=== PATIENT | male | born 1930 | race Caucasian/White ===

== ENCOUNTER 2016-11-20 14:16 | Inpatient (IN) | payer MEDICARE, BC ==
[2016-11-20] MEDS ORDERED: cefTRIAXone(*) 1 GM in NS 0.9% 50 ML* 50 ML IVPB ONE (15:08)
[2016-11-20] MEDS ORDERED: Acetaminophen TAB* 325 MG PO ONE (15:08)
[2016-11-20] MEDS ORDERED: Albuterol/Ipratropium NEB.SOL* Albuterol 2.5 MG/Ipratropium 0.5 MG 3 ML INH ONE (15:11)
[2016-11-20] MEDS ORDERED: Azithromycin IV(*) 500 MG in NS 0.9% 250 ML* 250 ML IVPB ONE (15:11)
[2016-11-20 15:28] LABS: Hematocrit 36 % (42-52); Hemoglobin 11.8 g/dl (14.0-18.0); Mean Corpuscular HGB Conc 33 g/dl (31-36); Mean Corpuscular Hemoglobin 32 pg (27-31); Mean Corpuscular Volume 95 fL (80-94); Mean Platelet Volume 7 um3 (7.4-10.4); Red Blood Count 3.74 10^6/ul (4.0-5.4); Red Cell Distribution Width 15 % (10.5-15); White Blood Count 22.7 10^3/ul (3.5-10.8)
[2016-11-20 15:29] LABS: Add Diff/Slide Review? Slide Review Added; Comments Flag Yes
--- NOTE | 2016-11-20 15:47 | RAD ---
HISTORY: Fever, cough, shortness of breath COMPARISONS: October 17, 2016 VIEWS:1: Single frontal portable view of the chest at 3:30 PM FINDINGS: LINES AND TUBES: None. CARDIOMEDIASTINAL SILHOUETTE: The cardiomediastinal silhouette is normal for portable technique. PLEURA: There is a small left pleural effusion LUNG PARENCHYMA: There is confluent alveolar opacification of the lung bases bilaterally. There is improved aeration of the right with progression on the left. ABDOMEN: The upper abdomen is clear. There is no subphrenic gas. BONES AND SOFT TISSUES: No bone or soft tissue abnormalities are noted. IMPRESSION: BIBASILAR AIRSPACE DISEASE, GREATER ON THE LEFT ON THE RIGHT, WITH PROGRESSION ON THE LEFT COMPARED TO OCTOBER 17, 2016. SMALL LEFT PLEURAL EFFUSION
[2016-11-20 15:50] LABS: Troponin I 0.28 ng/mL (<0.04)
[2016-11-20 15:54] LABS: Albumin 2.9 g/dL (3.2-5.2); BUN/Creatinine Ratio 21.1 (8-20); Calcium 9.1 mg/dL (8.6-10.3); EGFR African American 56.5 (>60); EGFR Non-African American 43.9 (>60); Globulin 3.8 g/dL (2-4); Potassium 4.1 mmol/L (3.5-5.0); Total Bilirubin 0.7 mg/dL (0.2-1.0); Total Protein 6.7 g/dL (6.4-8.9)
[2016-11-20] MEDS ORDERED: Digoxin IV* 0.5 MG/2 ML AMP (0.25 MG/ML) IV SLOW PU ONE (15:55)
[2016-11-20] MEDS: NS 0.9% 1000 ML* 2,000 ML IV ONE ×2 (15:58→17:03)
[2016-11-20] MEDS ORDERED: Acetaminophen TAB* 325 MG PO PRN (16:25)
[2016-11-20] MEDS ORDERED: Albuterol 2.5 MG/3 ML NEB.SOL* (0.083%) INH PRN (16:25)
[2016-11-20] MEDS ORDERED: NS 0.9% 1000 ML* 1,000 ML IV ONE (16:25)
[2016-11-20] MEDS ORDERED: Budesonide NEB* 0.5 MG/2 ML NEB.SOLN INH PRN (16:28)
[2016-11-20] MEDS ORDERED: NS 0.9% 1000 ML* 1,000 ML IV SCH (16:30)
--- NOTE | 2016-11-20 17:08 | ED ---
Kurtis Avalos Billy, scribed for Rakesh Ulloa MD on 11/20/16 at 1502 . Shortness of Breath - HPI Summary HPI Summary: Patient is an 86 year-old male coming to [facility] for evaluation of several days of cough and increased SOB. Patient has a history of severe dementia, but his family is here to provide a history. They state that he has had fevers, chills, rhinorrhea as well as a decreased appetite recently. 78% O2 saturation at home; patient uses home O2 regularly due to history of COPD/emphysema. Some family members have been sick as well. He has received the last year's flu vaccination. - History of Current Complaint Chief Complaint: EDShortnessOfBreath Time Seen by Provider: 11/20/16 14:50 Hx Obtained From: Family/Identification Officer Hx From Patient Unobtainable Due To: Dementia Onset/Duration: Gradual Onset, Lasting Days Timing: Constant Current Severity: Moderate Dyspnea At: Rest Alleviating Factors: Oxygen Associated Signs & Symptoms: Cough (Nonproductive), Fever, Chills, Calf Pain/ Swelling - Allergy/Home Medications Allergies/Adverse Reactions: Allergies Allergy/AdvReac Type Severity Reaction Status Date / Time No Known Allergies Allergy Verified 11/16/15 09:53 PMH/Surg Hx/FS Hx/Imm Hx Endocrine/Hematology History: Denies: Hx Diabetes Cardiovascular History: Reports: Hx Hypercholesterolemia - HLD, Other Cardiovascular Problems/Disorders - NSTEMI , AFIB, Denies: Hx Congestive Heart Failure, Hx Hypertension, Hx Pacemaker/ICD Respiratory History: Reports: Hx Chronic Bronchitis, Hx Chronic Obstructive Pulmonary Disease (COPD), Hx Pneumonia, Other Respiratory Problems/Disorders - HYPOXIA , OCCASIONAL smoker, emphysema GI History: Reports: Hx Gastroesophageal Reflux Disease, Hx Ulcer - HX OF, Other GI Disorders - RECTAL BLEEDING History: Reports: Hx Acute Renal Failure Denies: Hx Dialysis, Hx Renal Disease Musculoskeletal History: Reports: Hx Back Problems - back fracture Denies: Hx Arthritis, Hx Osteoporosis Sensory History: Reports: Hx Cataracts, Hx Contacts or Glasses - for reading, Hx Hearing Problem Denies: Hx Hearing Aid Opthamlomology History: Reports: Hx Cataracts, Hx Contacts or Glasses - for reading Neurological History: Reports: Hx Dementia, Other Neuro Impairments/Disorders - DEMENTIA Psychiatric History: Reports: Hx Anxiety, Hx Depression, Other Psychiatric Issues/Disorders - GETS CONFUSED AT NIGHT PER FAMILY ON LAST ADMISSION Denies: Hx Panic Disorder - Surgical History Surgery Procedure, Year, and Place: TONSILLECTOMY CHILD. BILAT CATARACTS [place] Hx Anesthesia Reactions: No - Immunization History Date of Tetanus Vaccine: unk Date of Influenza Vaccine: 2013 Infectious Disease History: No Infectious Disease History: Denies: Traveled Outside the [place] in Last 30 Days - Family History Known Family History: Positive: Respiratory Disease Family History: Father - Lung CA - Social History Alcohol Use: Rare Hx Substance Use: No Substance Use Type: Reports: None Hx Tobacco Use: Yes Smoking Status (MU): Heavy Every Day Tobacco Smoker Type: Cigarettes Amount Used/How Often: 10/DAY Length of Time of Smoking/Using Tobacco: 65 YRS Have You Smoked in the Last Year: Yes Review of Systems Positive: Fever, Chills Positive: Nasal Discharge Positive: Shortness Of Breath, Cough Positive: Other - decreased appetite Positive: Edema All Other Systems Reviewed And Are Negative: Yes Physical Exam - Summary Physical Exam Summary: The patient is well-nourished in no acute distress and in no acute pain. The skin is warm and dry and skin color reflects adequate perfusion. Decreased turgor. HEENT: The head is normocephalic and atraumatic. The pupils are equal and reactive. The conjunctivae are clear and without drainage. Nares are patent and without drainage. Mouth reveals dry mucous membranes and the throat is without erythema and exudate. The external ears are intact. The ear canals are patent and without drainage. The tympanic membranes are intact. Neck is supple with full range of motion and non-tender. There are no carotid bruits. There is positive neck vein distension. Respiratory: Chest is non-tender. Rhonchi and wheezing in the bilateral lung bases. Rales in the left upper lobe. Cardiovascular: Heart rate is tachycardic but regular rhythm. There is no murmur or rub auscultated. Abdomen: The abdomen is soft and non-tender. There are normal bowel sounds heard in all four quadrants and there is no organomegaly palpated. Musculoskeletal: There is no back pain noted. Extremities are non-tender with full range of motion. There is 2 second capillary refill. Pitting edema in the ankles and shins. Neurological: Patient is alert but not oriented. The patient has symmetrical motor strength in all four extremities. Cranial nerves are grossly intact. Deep tendon reflexes are symmetrical and equal in all four extremities. Psychiatric: The patient has an appropriate affect and does not exhibit any anxiety or depression. Triage Information Reviewed: Yes Vital Signs On Initial Exam: Initial Vitals Temp Pulse Resp BP Pulse Ox 99.8 F 65 16 132/95 80 11/20/16 14:21 11/20/16 14:21 11/20/16 14:21 11/20/16 14:21 11/20/16 14:21 Vital Signs Reviewed: Yes Completion Of Physical Exam Limited Due To: Dementia Diagnostics - Vital Signs Vital Signs Temp Pulse Resp BP Pulse Ox 11/20/16 14:21 99.8 F 65 16 132/95 80 - Laboratory Lab Results: Lab Results 11/20/16 11/20/16 11/20/16 Range/Units 15:20 15:20 15:20 WBC 22.7 H (3.5-10.8) 10^3/ul RBC 3.74 L (4.0-5.4) 10^6/ul Hgb 11.8 L (14.0-18.0) g/dl Hct 36 L (42-52) % MCV 95 H (80-94) fL MCH 32 H (27-31) pg MCHC 33 (31-36) g/dl RDW 15 (10.5-15) % Plt Count 309 (150-450) 10^3/ul MPV 7 L (7.4-10.4) um3 Neut % (Auto) 90.3 H (38-83) % Lymph % (Auto) 3.0 L (25-47) % [place] % (Auto) 6.4 (1-9) % Eos % (Auto) 0.1 (0-6) % Baso % (Auto) 0.2 (0-2) % Absolute Neuts (auto) 20.6 H (1.5-7.7) 10^3/ul Absolute Lymphs (auto) 0.7 L (1.0-4.8) 10^3/ul Absolute Monos (auto) 1.4 H (0-0.8) 10^3/ul Absolute Eos (auto) 0 (0-0.6) 10^3/ul Absolute Basos (auto) 0 (0-0.2) 10^3/ul Absolute Nucleated RBC 0 10^3/ul Nucleated RBC % 0 INR (Anticoag Therapy) 1.15 H (0.89-1.11) APTT 30.1 (26.0-36.3) seconds Sodium 138 (133-145) mmol/L Potassium 4.1 (3.5-5.0) mmol/L Chloride 100 L (101-111) mmol/L Carbon Dioxide 30 (22-32) mmol/L Anion Gap 8 (2-11) mmol/L BUN 32 H (6-24) mg/dL Creatinine 1.52 H (0.67-1.17) mg/dL Est GFR ( Amer) 56.5 (>60) Est GFR (Non-Af Amer) 43.9 (>60) BUN/Creatinine Ratio 21.1 H (8-20) Glucose 108 H (70-100) mg/dL Lactic Acid (0.5-2.0) mmol/L Calcium 9.1 (8.6-10.3) mg/dL Total Bilirubin 0.70 (0.2-1.0) mg/dL AST 15 (13-39) U/L ALT 9 (7-52) U/L Alkaline Phosphatase 68 (34-104) U/L Troponin I 0.28 H* (<0.04) ng/mL B-Natriuretic Peptide ( - 100) pg/mL Total Protein 6.7 (6.4-8.9) g/dL Albumin 2.9 L (3.2-5.2) g/dL Globulin 3.8 (2-4) g/dL Albumin/Globulin Ratio 0.8 L (1-3) 11/20/16 11/20/16 Range/Units 15:20 15:20 WBC (3.5-10.8) 10^3/ul RBC (4.0-5.4) 10^6/ul Hgb (14.0-18.0) g/dl Hct (42-52) % MCV (80-94) fL MCH (27-31) pg MCHC (31-36) g/dl RDW (10.5-15) % Plt Count (150-450) 10^3/ul MPV (7.4-10.4) um3 Neut % (Auto) (38-83) % Lymph % (Auto) (25-47) % [place] % (Auto) (1-9) % Eos % (Auto) (0-6) % Baso % (Auto) (0-2) % Absolute Neuts (auto) (1.5-7.7) 10^3/ul Absolute Lymphs (auto) (1.0-4.8) 10^3/ul Absolute Monos (auto) (0-0.8) 10^3/ul Absolute Eos (auto) (0-0.6) 10^3/ul Absolute Basos (auto) (0-0.2) 10^3/ul Absolute Nucleated RBC 10^3/ul Nucleated RBC % INR (Anticoag Therapy) (0.89-1.11) APTT (26.0-36.3) seconds Sodium (133-145) mmol/L Potassium (3.5-5.0) mmol/L Chloride (101-111) mmol/L Carbon Dioxide (22-32) mmol/L Anion Gap (2-11) mmol/L BUN (6-24) mg/dL Creatinine (0.67-1.17) mg/dL Est GFR ( Amer) (>60) Est GFR (Non-Af Amer) (>60) BUN/Creatinine Ratio (8-20) Glucose (70-100) mg/dL Lactic Acid 1.7 (0.5-2.0) mmol/L Calcium (8.6-10.3) mg/dL Total Bilirubin (0.2-1.0) mg/dL AST (13-39) U/L ALT (7-52) U/L Alkaline Phosphatase (34-104) U/L Troponin I (<0.04) ng/mL B-Natriuretic Peptide 465 H ( - 100) pg/mL Total Protein (6.4-8.9) g/dL Albumin (3.2-5.2) g/dL Globulin (2-4) g/dL Albumin/Globulin Ratio (1-3) Result Diagrams: 11/20/16 15:20 11/20/16 15:20 Lab Statement: Any lab studies that have been ordered have been reviewed, and results considered in the medical decision making process. - Radiology CXR Radiology Interpretation Completed By: Radiologist - BIBASILAR AIRSPACE DISEASE , GREATER ON THE LEFT ON THE RIGHT, WITH PROGRESSION ON THE LEFT COMPARED TO OCTOBER 17, 2016. SMALL LEFT PLEURAL EFFUSION - EKG 1451 EKG Interpretation: afib 145 bpm with RVR Re-Evaluation - Re-Evaluation First Eval Re-Evaluation Time: 15:57 Change: Unchanged Comment: He remains hypotensive. Course/Dx - Course Assessment/Plan: 86 y/o male to the ED for evaluation of SOB. CXR shows bibasilar airspace disease, greater on the left on the right, with progression on the left compared to 10/17/2016; small left pleural effusion. EKG shows afib 145 bpm with RVR. In the ED course, patient was given Tylenol, Duoneb, Digoxin, Rocephin, Azithromycin, and IV fluids. Case was discussed with Dr. Pearson, who accepted the patient for admission. - Diagnoses Provider Diagnoses: Pneumonia, sepsis, Atrial fibrillation, Elevated troponin - Physician Notifications Discussed Care of Patient With: Aung Hartley NP (hospitalist) @ 1532: discussed patient presentation. Dr. Pearson (hospitalist) @ 1602: accepts admission. - Critical Care Time Critical Care Time: 30-74 min - 30 minutes of critical care time Discharge - Discharge Plan Condition: Stable Disposition: ADMITTED TO [facility] Referrals: Micheal Rutledge MD [Primary Care Provider] - The documentation as recorded by the Kurtis salguero Billy accurately reflects the service I personally performed and the decisions made by , Rakesh Ulloa MD.
[2016-11-20] MEDS: Albuterol/Ipratropium NEB.SOL* Albuterol 2.5 MG/Ipratropium 0.5 MG 3 ML INH SCH ×2 (17:49→20:51)
[2016-11-20] MEDS: methylPREDNISolone 125 MG* 2 ML VIAL IV SCH (18:08)
[2016-11-20] MEDS: Mometasone/Formoter 200/5 MDI INH SCH (20:51)
--- NOTE | 2016-11-20 21:36 | HP ---
HISTORY AND PHYSICAL: DATE OF ADMISSION: 11/20/16 PRIMARY CARE PROVIDER: Dr. Rutledge. ATTENDING PHYSICIAN WHILE IN THE HOSPITAL: Dr. Pat Pearson* (report dictated by Aung Hartley, TAMEKA). CHIEF COMPLAINT: 1. Shortness of breath. 2. Hypoxia. HISTORY OF PRESENT ILLNESS: Mr. Ruelas is an 86-year-old male patient with multiple medical problems particularly respiratory who really is unable to give much history because he has underlying severe dementia, but he comes in today basically the stating and the family saying that over the last couple days , they have noted he had become progressively more confused which they usually note when he gets an infection. He has also noted that he has been having cough productive of sputum at times. In addition to this, he has been hypoxic. They needed to increase his O2 and there have been no reports of fever, nausea , vomiting, or diarrhea. He just has not been acting himself. They were concerned particularly when they noted that he was hypoxic, felt that maybe he had another pneumonia or COPD exacerbation which he has had multiple in the past. So, he came in to the hospital to be evaluated. PAST MEDICAL HISTORY: 1. History of COPD. 2. Chronic respiratory failure. 3. Dementia. 4. Depression. 5. Pulmonary hypertension. 6. GERD. PAST SURGICAL HISTORY: 1. He has had cataracts. 2. Tonsillectomy. HOME MEDICATIONS: Include: 1. Spiriva 1 capsule inhaled daily. 2. Zoloft 100 mg p.o. daily. 3. Probiotic 1 tablet daily. 4. Omeprazole 20 mg daily. 5. Wellbutrin 150 mg daily. 6. Bumex 1 mg p.o. daily. 7. Pulmicort 0.5 mg p.o. b.i.d. as needed. 8. Ventolin 1 puff inhaled every 6 hours as needed. 9. Albuterol 2.5 inhaled every 6 hours as needed. ALLERGIES TO MEDICATIONS: Include no known drug allergies. FAMILY HISTORY: Reviewed and noncontributory. SOCIAL HISTORY: He is a smoker about 1 to 2 cigarettes a day. He lives with his . Surrogate decision maker is the patient's . REVIEW OF SYSTEMS: There is no documented fever. He denied any significant weight change. There was no double vision. There is no ear discharge. He denies having any rhinorrhea. There is no sore throat. No thyroid enlargement. Denies having any chest pain. There is no orthopnea. No nocturnal dyspnea. There is no abdominal pain. No nausea. No vomiting. There has been no dysuria reported. Review of 14 systems limited because of the underlying dementia. According to the family, these symptoms have not been observed. PHYSICAL EXAMINATION GENERAL: At this time, Mr. Ruelas is an 86-year-old male patient. He is sitting in the ER stretcher. He does not appear to be tachypneic. He appears to be well nourished. He does not appear to be in any acute distress. VITAL SIGNS: Blood pressure initially 132/95 with a pulse of 65, respirations 16, O2 saturation 80%, temperature 99.8. His heart rate now is 127. Blood pressure is 88/65. HEENT: Head is atraumatic, normocephalic. Eyes: EOMs intact. Sclerae anicteric and not pale. Throat: Oral mucosa appears to be moist. No oropharyngeal erythema. NECK: Supple. LUNGS: He had rhonchi in the lower lobes. Equal diaphragmatic expansion. HEART: Sounds S1, S2. Irregularly irregular rate and rhythm. No murmurs, rubs , or gallops. ABDOMEN: Soft, it was flat, nontender. Bowel sounds present. EXTREMITIES: Pulses were 2+ throughout. He is able to move all 4 extremities with 5/5 strength. NEUROLOGIC: The patient is awake, alert, and he is oriented x3. Tongue midline. [place] were equal. He had no gross focal deficits. SKIN: Grossly intact. LABORATORY DATA AND DIAGNOSTIC STUDIES: Revealed a WBC of 22.7, RBC of 3.74, hemoglobin 11.8, hematocrit of 36, platelet count of 309. The INR was 1.15. PTT of 30.1. The sodium was 138, potassium was 4.1, chloride of 105, bicarb 30 , BUN 32, creatinine 1.52, it is elevated from his baseline. Glucose is 108, lactic 1.7, calcium 9.1. Total bili 0.78, AST 15, ALT 9, alk phos 68. Troponin 0.28. BNP is 465. He had a chest x-ray obtained today, which showed bilateral infiltrates. Radiology read it as bibasilar airspace disease, greater on the left than on right, progression to left, compared to 10/17/16 exam, small left effusion. EKG shows atrial fibrillation, rate of 145. No ST elevation or T-wave inversion. The AFib appears to be new compared to previous EKGs. In the past, he has been in sinus tachycardia. Old medical records were reviewed. ASSESSMENT AND PLAN: Mr. Ruelas is an 86-year-old male patient coming in to the ER today with complaints of altered mental status, hypoxia, and on evaluation found to have pneumonia, found to be in atrial fibrillation with RVR. He will be admitted under inpatient status for: 1. Pneumonia with signs of sepsis: He had a white count of 22,000. In addition to this, he was altered. He was noted to be hypoxic. He appears to have severe sepsis. He has an acute renal failure and his troponin is up. Plan at this point, 2-L bolus. Try to get the heart rate controlled with digoxin for the time being. IV antibiotics. We will send off flu swabs, send Legionella and Strep pneumo antigens. We will order flutter valve, steroids, nebulizers around the clock. In addition to this, try to get a sputum culture and I believe blood cultures have actually been sent. 2. Chronic obstructive pulmonary disease with exacerbation: Again, nebs, pulmonary toileting, flutter valve, antibiotics, and steroids. 3. Chronic respiratory failure: Again, we will keep his O2 greater than 90%. 4. Depression: Continue Zoloft. 5. Pulmonary hypertension: We will follow. 6. Indeterminate troponin, probably secondary to the acute illness: We will monitor this. It is probably demand ischemia. We will trend these and get an echo. 7. Acute renal failure: Again, probably prerenal secondary to the acute illness. We will go ahead and hydrate. Get a FENa and follow. 8. DVT prophylaxis: He will be placed on heparin subcu. 9. New-onset atrial fibrillation, probably related to the acute illness: I discussed at length with the patient and family about anticoagulation. At this point, they would like to discuss this with their family, particularly as the patient has had decreasing quality of life and he is falling and he is unsteady on his feet, so that I could discuss this. 10. End of life care: Again, at this point, the patient does not appear to be actively dying, but certainly, he has had multiple admissions in the past for chronic obstructive pulmonary disease. He has advanced chronic obstructive pulmonary disease. In addition to this, he has advanced dementia. The family was interested in hospice evaluation which I have placed for the family, and we will honor their wishes. 11. Code status: He is a DNR/DNI. 12. Fluids, electrolytes, and nutrition: He can have a regular diet. 13. DVT prophylaxis: He will be placed on heparin subcu. TIME SPENT: Time spent on the admission was approximately 80 minutes which is critical care time, greater than half the time was spent [id number] with the patient obtaining my history and physical, other half the time spent going over the plan of care with the patient and implementing plan of care. I did discuss the plan of care with my attending, Dr. Pearson; she is in agreement. AUNG HARTLEY NP CC: Dr. Rutledge* [id number]/CPS #: [id number] HUBERT
[2016-11-20] MEDS: Heparin VIAL(*) 5000 UNITS/ML VIAL (FIVE THOUSAND) SUBCUT SCH (22:33)
[2016-11-21] MEDS: Albuterol/Ipratropium NEB.SOL* Albuterol 2.5 MG/Ipratropium 0.5 MG 3 ML INH SCH ×6 (01:16→20:54)
[2016-11-21] MEDS ORDERED: NS 0.9% 1000 ML* 1,000 ML IV SCH ×3 (02:45→07:45)
--- NOTE | 2016-11-21 03:18 | PN ---
Progress Note - Progress Note Note: Cross cover: Urinary retention with 700 cc Norris placed
[2016-11-21] MEDS ORDERED: NS 0.9% IV ONE (03:20)
[2016-11-21 03:33] LABS: Urine Bacteria 1+ (Absent); Urine Bilirubin Negative (Negative); Urine Glucose 3+(>=500 mg/dL) (Negative); Urine Nitrite Negative (Negative)
[2016-11-21] MEDS: methylPREDNISolone 125 MG* 2 ML VIAL IV SCH ×2 (05:15→18:05)
[2016-11-21] MEDS: Heparin VIAL(*) 5000 UNITS/ML VIAL (FIVE THOUSAND) SUBCUT SCH ×3 (05:15→21:54)
[2016-11-21 05:24] LABS: Hematocrit 30 % (42-52); Hemoglobin 9.7 g/dl (14.0-18.0); Mean Corpuscular HGB Conc 33 g/dl (31-36); Mean Corpuscular Hemoglobin 31 pg (27-31); Mean Corpuscular Volume 95 fL (80-94); Mean Platelet Volume 7 um3 (7.4-10.4); Red Cell Distribution Width 15 % (10.5-15)
[2016-11-21 05:50] LABS: Calcium 8.1 mg/dL (8.6-10.3); EGFR African American 87.5 (>60); Potassium 4.2 mmol/L (3.5-5.0)
[2016-11-21] MEDS: Mometasone/Formoter 200/5 MDI INH SCH ×2 (07:49→20:54)
[2016-11-21] MEDS: Sertraline* 100 MG TAB PO SCH (09:42)
[2016-11-21] MEDS: Omeprazole CAP* 20 MG PO SCH (09:43)
--- NOTE | 2016-11-21 11:59 | ECHO ---
Patient: CLINTON FARRIS Rec#: [id number] : 1930 Date: 11/21/2016 Age: 86y Height: 175.26 cm / 69.0 in Weight: 53.52 kg / 118.0 lbs Sex: M BSA: 1.65 Room#: [facility] Admit Date#: 11/20/2016 Type: Inpatient Referring: Aung Hartley NP Reading: Demetrio Adame DO Combat Systems Officer: Elly Borges RN RDCS Combat Systems Officer: Carleen Rowley CC: Micheal Rutledge MD Transthoracic Echocardiogram Indication: A-Fib, dyspnea. BP: 118/71 HR: 95 Rhythm: NSR with PACs Findings History: Dementia, COPD, depression, HLD, GERD, PHTN, chronic respirtory failure, smoker. Technical Comments: The study is technically limited due to the patient's history of COPD. The study is technically limited due to the patient's smoking history. Completed at 1000. Left Ventricle: The left ventricular chamber size is normal. Mild concentric left ventricular hypertrophy is observed. Global left ventricular wall motion and contractility are within normal limits. There is normal left ventricular systolic function. The estimated ejection fraction is 60-65%. There is no consistent Doppler evidence of clinically significant diastolic dysfunction. Left Atrium: The left atrial chamber size is normal. Right Ventricle: The right ventricle is slightly dilated. The right ventricular global systolic function is normal. Right Atrium: The right atrium is mildly dilated. Aortic Valve: The aortic valve is trileaflet. The aortic valve leaflets are mildly thickened. There is evidence of aortic sclerosis without stenosis. There is aortic annular calcification.that is mild There is no evidence of aortic regurgitation. Mitral Valve: The mitral valve leaflets are mildly thickened. There is a trace of mitral regurgitation. There is no evidence of mitral stenosis. Tricuspid Valve: The tricuspid valve leaflets are normal. There is mild tricuspid regurgitation. There is evidence of mild pulmonary hypertension. There is no tricuspid stenosis. Pulmonic Valve: The pulmonic valve appears normal. There is a trace pulmonic regurgitation. There is no pulmonic stenosis. Pericardium: There is no significant pericardial effusion. Aorta: There is no dilatation of the ascending aorta. The aortic arch is not well visualized. There is no dilation of the aortic root. Pulmonary Artery: The main pulmonary artery is not well visualized. Venous: The inferior vena cava appears normal in size. There is a greater than 50% respiratory change in the inferior vena cava dimension. Conclusions Patient appears to be in sinus rhythm at time of study. The left ventricular chamber size is normal. Mild concentric left ventricular hypertrophy is observed. There is normal left ventricular systolic function. The estimated ejection fraction is 60-65%. Global left ventricular wall motion and contractility are within normal limits. Normal left atrial size The right ventricular chamber size is now slightly dilated with normal systolic function There is evidence of aortic sclerosis without stenosis. There is mild tricuspid regurgitation. There is evidence of mild pulmonary hypertension. Compared to prior study from 10/2015, the RV size is now slightly dilated and function now appears normal (was mild-moderately dilated with mildly reduced function previously), the estimated PASP is now mildly elevated (was moderate elevated previously), the ventricular septum now appears normal (had mild flattening previously) Measurements Name Value Normal Range RVDdMajor (2D) 3.9 cm (2.2 - 4.4) RVAW (2D) 0.9 cm (0.2 - 0.5) RAd ISD 4CH 5.2 cm (3.4 - 4.9) RA (A4C)W 4.7 cm (2.9 - 4.6) IVSd (2D) 1.1 cm (0.6 - 1) LVPWd (2D) 1.1 cm (0.6 - 1) LVIDd (2D) 4.2 cm (3.6 - 5.4) LVIDs (2D) 2.8 cm - LV FS (2D) 33 % (25 - 45) Aortic Annulus 2.1 cm (1.4 - 2.6) Ao root diameter (2D) 3.4 cm (2.1 - 3.5) Ascending Ao 3.3 cm (2.1 - 3.4) LA dimension (AP) 2D 3.4 cm (2.3 - 3.8) LAd ISD 4CH 4.9 cm (2.9 - 5.3) LA ISD 4CH W 3.8 cm (2.5 - 4.5) Name Value Normal Range LA ESV SP 4CH (A/L) 50 ml - LA ESV SP 2CH (A/L) 38 ml - LA ESV BP (A/L) 44 ml - LA ESV BP (A/L) index 26.89 ml/m2 - LA ESV SP 4CH (MOD) 44 ml - LA ESV SP 2CH (MOD) 37 ml - Name Value Normal Range MV E-wave Vmax 1 m/sec - MV deceleration time 106 msec - MV A-wave Vmax 0.9 m/sec - MV E:A ratio 1.1 ratio - LV septal e' Vmax 0.09 m/sec - LV lateral e' Vmax 0.1 m/sec - LV E:e' septal ratio 11 ratio - LV E:e' lateral ratio 10 ratio - Name Value Normal Range AV Vmax 1.7 m/sec - AV VTI 34.72 cm - AV peak gradient 12.07 mmHg - AV mean gradient 7.88 mmHg - LVOT diameter 2.1 cm - LVOT Vmax 1 m/sec - LVOT VTI 17 cm - LVOT peak gradient 3.66 mmHg - LVOT mean gradient 1.71 mmHg - Name Value Normal Range TR Vmax 3.1 m/sec - TR peak gradient 38 mmHg - RAP 3 mmHg - RVSP 41 mmHg - IVC diameter 1.7 cm - Name Value Normal Range PV Vmax 0.6 m/sec - PV peak gradient 1.63 mmHg -
--- NOTE | 2016-11-21 13:42 | PN ---
Subjective Date of Service: 11/21/16 Interval History: pt had urinary retention at night and a Norris was placed. Now , very forgetful, has no complaints Objective Active Medications: Acetaminophen (Tylenol Tab*) 650 mg PO Q4H PRN PRN Reason: FEVER/PAIN Albuterol (Ventolin 2.5 Mg/3 Ml Neb.Shiela*) 2.5 mg INH Q2H PRN PRN Reason: SOB/WHEEZING Albuterol/Ipratropium (Duoneb (Albuterol 2.5 Mg/Ipratropium 0.5 Mg)) 1 neb INH Q4H [facility] Last Admin: 11/21/16 07:51 Dose: 1 neb Budesonide (Pulmicort Neb*) 0.5 mg INH BID PRN PRN Reason: SHORTNESS OF BREATH Heparin Sodium (Porcine) (Heparin Vial(*)) 5,000 units SUBCUT Q8HR [facility] Last Admin: 11/21/16 05:15 Dose: 5,000 units Ceftriaxone Sodium 1,000 mg/ (Sodium Chloride) 50 mls @ 200 mls/hr IVPB Q24H [facility] Azithromycin 500 mg/ Sodium (Chloride) 250 mls @ 250 mls/hr IVPB Q24H [facility] Sodium Chloride (Ns 0.9% 1000 Ml*) 1,000 mls @ 75 mls/hr IV PER RATE [facility] Methylprednisolone Sodium Succinate (Solu-Medrol*) 60 mg IV Q12H [facility] Last Admin: 11/21/16 05:15 Dose: 60 mg Mometasone Furoate/Formoterol Fumar (Dulera 200/5 Mdi*) 2 puff INH BID [facility] Last Admin: 11/21/16 07:49 Dose: 2 puff Omeprazole (Prilosec Cap*) 20 mg PO DAILY [facility] Last Admin: 11/21/16 09:43 Dose: 20 mg Sertraline HCl (Zoloft*) 100 mg PO QAM [facility] Last Admin: 11/21/16 09:42 Dose: 100 mg Vital Signs 11/20/16 11/20/16 11/20/16 16:24 17:17 17:19 Temperature Pulse Rate 128 Respiratory 25 Rate Blood Pressure 83/59 (mmHg) O2 Sat by Pulse Oximetry 11/20/16 11/20/16 11/20/16 17:30 17:32 17:41 Temperature 98.3 F 99.0 F Pulse Rate 117 96 Respiratory 28 22 25 Rate Blood Pressure 93/53 98/56 (mmHg) O2 Sat by Pulse 94 Oximetry 11/20/16 11/20/16 11/20/16 17:47 17:52 18:00 Temperature Pulse Rate 117 118 Respiratory 20 22 Rate Blood Pressure 86/54 75/41 (mmHg) O2 Sat by Pulse 94 91 Oximetry 11/20/16 11/20/16 11/20/16 18:03 18:15 18:30 Temperature Pulse Rate 99 94 97 Respiratory 19 22 18 Rate Blood Pressure 99/58 95/57 (mmHg) O2 Sat by Pulse 94 91 98 Oximetry 11/20/16 11/20/16 11/20/16 18:45 19:00 19:30 Temperature Pulse Rate 97 97 95 Respiratory 18 17 19 Rate Blood Pressure 96/58 100/65 102/70 (mmHg) O2 Sat by Pulse 99 97 97 Oximetry 11/20/16 11/20/16 11/20/16 19:45 20:00 20:15 Temperature 98.5 F Pulse Rate 93 92 87 Respiratory 17 17 20 Rate Blood Pressure 104/62 103/58 121/68 (mmHg) O2 Sat by Pulse 96 96 95 Oximetry 11/20/16 11/20/16 11/20/16 20:30 20:45 20:52 Temperature Pulse Rate 88 90 84 Respiratory 19 20 Rate Blood Pressure 111/74 104/61 (mmHg) O2 Sat by Pulse 97 97 98 Oximetry 11/20/16 11/20/16 11/20/16 21:00 21:15 21:30 Temperature Pulse Rate 91 97 Respiratory 20 22 Rate Blood Pressure 106/72 113/74 115/75 (mmHg) O2 Sat by Pulse 98 95 Oximetry 11/20/16 11/20/16 11/20/16 21:45 22:00 22:15 Temperature Pulse Rate 113 97 97 Respiratory 24 24 21 Rate Blood Pressure 108/73 106/62 103/55 (mmHg) O2 Sat by Pulse 81 97 98 Oximetry 11/20/16 11/20/16 11/20/16 22:19 22:30 22:45 Temperature Pulse Rate 94 92 Respiratory 20 18 17 Rate Blood Pressure 106/71 106/62 (mmHg) O2 Sat by Pulse 98 97 Oximetry 11/20/16 11/20/16 11/20/16 23:00 23:07 23:15 Temperature Pulse Rate 92 91 92 Respiratory 17 18 18 Rate Blood Pressure 109/72 113/79 (mmHg) O2 Sat by Pulse 96 97 97 Oximetry 11/20/16 11/20/16 11/20/16 23:16 23:30 23:45 Temperature 99.2 F Pulse Rate 85 84 Respiratory 17 17 Rate Blood Pressure 113/64 114/64 (mmHg) O2 Sat by Pulse 97 98 Oximetry 11/20/16 11/21/16 11/21/16 23:56 00:00 00:01 Temperature 99.2 F Pulse Rate 84 84 Respiratory 15 15 Rate Blood Pressure 115/63 (mmHg) O2 Sat by Pulse 98 98 Oximetry 11/21/16 11/21/16 11/21/16 00:15 00:30 00:45 Temperature Pulse Rate 84 84 83 Respiratory 16 18 17 Rate Blood Pressure 110/65 117/70 111/67 (mmHg) O2 Sat by Pulse 97 97 97 Oximetry 11/21/16 11/21/16 11/21/16 01:00 01:15 01:17 Temperature Pulse Rate 82 82 80 Respiratory 16 17 Rate Blood Pressure 112/70 120/76 (mmHg) O2 Sat by Pulse 97 97 99 Oximetry 11/21/16 11/21/16 11/21/16 01:30 01:45 02:00 Temperature Pulse Rate 83 82 82 Respiratory 17 16 15 Rate Blood Pressure 116/68 112/66 116/64 (mmHg) O2 Sat by Pulse 98 98 98 Oximetry 11/21/16 11/21/16 11/21/16 02:15 02:30 02:45 Temperature Pulse Rate 82 98 83 Respiratory 16 22 16 Rate Blood Pressure 115/67 92/44 112/66 (mmHg) O2 Sat by Pulse 97 94 96 Oximetry 11/21/16 11/21/16 11/21/16 03:00 03:15 03:30 Temperature Pulse Rate 82 85 82 Respiratory 16 20 18 Rate Blood Pressure 138/77 114/85 126/70 (mmHg) O2 Sat by Pulse 97 97 98 Oximetry 11/21/16 11/21/16 11/21/16 03:45 03:59 04:00 Temperature 98.5 F Pulse Rate 80 84 Respiratory 15 19 Rate Blood Pressure 112/73 120/73 (mmHg) O2 Sat by Pulse 97 98 Oximetry 11/21/16 11/21/16 11/21/16 04:15 04:25 04:30 Temperature 96.3 F 96.8 F Pulse Rate 88 85 Respiratory 20 16 19 Rate Blood Pressure 117/71 112/70 (mmHg) O2 Sat by Pulse 98 98 Oximetry 11/21/16 11/21/16 11/21/16 04:45 04:55 05:00 Temperature 96.8 F 96.8 F Pulse Rate 83 81 82 Respiratory 18 15 18 Rate Blood Pressure 124/81 117/70 (mmHg) O2 Sat by Pulse 97 97 97 Oximetry 11/21/16 11/21/16 11/21/16 05:15 05:20 05:30 Temperature 96.7 F 96.7 F Pulse Rate 82 82 Respiratory 16 16 Rate Blood Pressure 123/72 120/75 (mmHg) O2 Sat by Pulse 98 97 96 Oximetry 11/21/16 11/21/16 11/21/16 05:45 06:11 07:27 Temperature 96.9 F 97.1 F 97.2 F Pulse Rate 84 92 87 Respiratory 17 18 16 Rate Blood Pressure 117/80 118/71 121/64 (mmHg) O2 Sat by Pulse 96 97 96 Oximetry 11/21/16 11/21/16 11/21/16 07:54 08:49 09:51 Temperature Pulse Rate 88 88 Respiratory 18 18 Rate Blood Pressure (mmHg) O2 Sat by Pulse 97 98 98 Oximetry Oxygen Devices in Use Now: Nasal Cannula - at 5 L Nc Appearance: 86 yo M in nAD, oriented to self, recognizes family members, pleasant and cooperative, doesn't rememeber his age Eyes: No Scleral Icterus, PERRLA Ears/Nose/Mouth/Throat: NL Teeth, Lips, Gums, Mucous Membranes Moist Neck: NL Appearance and Movements; NL JVP, Trachea Midline Respiratory: Symmetrical Chest Expansion and Respiratory Effort, - - Rhonchi at RLL, scattered b/l mid lung wheezes Cardiovascular: - - irregular Abdominal: NL Sounds; No Tenderness; No Distention, No Hepatosplenomegaly Lymphatic: No Cervical Adenopathy Extremities: No Edema, No Clubbing, Cyanosis Skin: No Rash or Ulcers, No Nodules or Sclerosis Neurological: NL Muscle Strength and Tone Result Diagrams: 11/21/16 05:13 11/21/16 05:13 Additional Lab and Data: Lab Results 11/20/16 11/20/16 11/20/16 Range/Units 15:20 15:20 15:20 WBC 22.7 H (3.5-10.8) 10^3/ul RBC 3.74 L (4.0-5.4) 10^6/ul Hgb 11.8 L (14.0-18.0) g/dl Hct 36 L (42-52) % MCV 95 H (80-94) fL MCH 32 H (27-31) pg MCHC 33 (31-36) g/dl RDW 15 (10.5-15) % Plt Count 309 (150-450) 10^3/ul MPV 7 L (7.4-10.4) um3 Neut % (Auto) 90.3 H (38-83) % Lymph % (Auto) 3.0 L (25-47) % [place] % (Auto) 6.4 (1-9) % Eos % (Auto) 0.1 (0-6) % Baso % (Auto) 0.2 (0-2) % Absolute Neuts (auto) 20.6 H (1.5-7.7) 10^3/ul Absolute Lymphs (auto) 0.7 L (1.0-4.8) 10^3/ul Absolute Monos (auto) 1.4 H (0-0.8) 10^3/ul Absolute Eos (auto) 0 (0-0.6) 10^3/ul Absolute Basos (auto) 0 (0-0.2) 10^3/ul Absolute Nucleated RBC 0 10^3/ul Nucleated RBC % 0 INR (Anticoag Therapy) 1.15 H (0.89-1.11) APTT 30.1 (26.0-36.3) seconds Sodium 138 (133-145) mmol/L Potassium 4.1 (3.5-5.0) mmol/L Chloride 100 L (101-111) mmol/L Carbon Dioxide 30 (22-32) mmol/L Anion Gap 8 (2-11) mmol/L BUN 32 H (6-24) mg/dL Creatinine 1.52 H (0.67-1.17) mg/dL Est GFR ( Amer) 56.5 (>60) Est GFR (Non-Af Amer) 43.9 (>60) BUN/Creatinine Ratio 21.1 H (8-20) Glucose 108 H (70-100) mg/dL Lactic Acid (0.5-2.0) mmol/L Calcium 9.1 (8.6-10.3) mg/dL Total Bilirubin 0.70 (0.2-1.0) mg/dL AST 15 (13-39) U/L ALT 9 (7-52) U/L Alkaline Phosphatase 68 (34-104) U/L Troponin I 0.28 H* (<0.04) ng/mL B-Natriuretic Peptide ( - 100) pg/mL Total Protein 6.7 (6.4-8.9) g/dL Albumin 2.9 L (3.2-5.2) g/dL Globulin 3.8 (2-4) g/dL Albumin/Globulin Ratio 0.8 L (1-3) 11/20/16 11/20/16 Range/Units 15:20 15:20 WBC (3.5-10.8) 10^3/ul RBC (4.0-5.4) 10^6/ul Hgb (14.0-18.0) g/dl Hct (42-52) % MCV (80-94) fL MCH (27-31) pg MCHC (31-36) g/dl RDW (10.5-15) % Plt Count (150-450) 10^3/ul MPV (7.4-10.4) um3 Neut % (Auto) (38-83) % Lymph % (Auto) (25-47) % [place] % (Auto) (1-9) % Eos % (Auto) (0-6) % Baso % (Auto) (0-2) % Absolute Neuts (auto) (1.5-7.7) 10^3/ul Absolute Lymphs (auto) (1.0-4.8) 10^3/ul Absolute Monos (auto) (0-0.8) 10^3/ul Absolute Eos (auto) (0-0.6) 10^3/ul Absolute Basos (auto) (0-0.2) 10^3/ul Absolute Nucleated RBC 10^3/ul Nucleated RBC % INR (Anticoag Therapy) (0.89-1.11) APTT (26.0-36.3) seconds Sodium (133-145) mmol/L Potassium (3.5-5.0) mmol/L Chloride (101-111) mmol/L Carbon Dioxide (22-32) mmol/L Anion Gap (2-11) mmol/L BUN (6-24) mg/dL Creatinine (0.67-1.17) mg/dL Est GFR ( Amer) (>60) Est GFR (Non-Af Amer) (>60) BUN/Creatinine Ratio (8-20) Glucose (70-100) mg/dL Lactic Acid 1.7 (0.5-2.0) mmol/L Calcium (8.6-10.3) mg/dL Total Bilirubin (0.2-1.0) mg/dL AST (13-39) U/L ALT (7-52) U/L Alkaline Phosphatase (34-104) U/L Troponin I (<0.04) ng/mL B-Natriuretic Peptide 465 H ( - 100) pg/mL Total Protein (6.4-8.9) g/dL Albumin (3.2-5.2) g/dL Globulin (2-4) g/dL Albumin/Globulin Ratio (1-3) Microbiology and Other Data: Microbiology 11/20/16 17:00 Influenza Types A,B Antigen ([facility]) - Final Nasal Specimen received for Influenza A/B Molecular testing Assess/Plan/Problems-Billing Assessment: 86 yo M with h/o dementia and COPD (02 dependent) presented with pneumonia - Patient Problems (1) Acute and chronic respiratory failure Comment: due to penumonia. Pt has h/o chronic hypoxemic respiratory failure( on 02 at home) Improving, down to 6 L Nc. (2) Pneumonia Comment: CAP, sepsis at admission. Continue azithro and ceftriaxone rapid flu neg blood cx neg to date (3) Atrial fibrillation Comment: Had a smilar presentation one monht ago. now still in A. fib, but rate controlled Family interested in hospice at discharge, due to that anticoagulation not indicated. (4) Acute renal failure Comment: Resolved with IVFs. Due to sepsis (5) Elevated troponin Comment: Trop peaked 0.2, suspect demand ischemia. No CP (6) History of dementia Comment: moderate (7) COPD exacerbation Comment: Continue steroids, nebs. (8) DVT prophylaxis Comment: heparin sc (9) DNR (do not resuscitate) Comment: palliative care consult appreciated. Pt will be referred to hospice at discharge (10) Urinary retention Comment: will try to mobilize and d/c Norris today. Status and Disposition: inpatient
--- NOTE | 2016-11-21 13:45 | CONSULT ---
Palliative / Hospice Consult Ordering Provider: Ab De La Rosa - Subjective Code Status: DNR Advance Directives Location: In Chart MOLST Part A Completed: Yes MOLST Part E Completed:: Yes - History or Present Illness History or Present Illness: This 86 year old man with dementia, CRF, GERD, pulmonary HTN and COPD has been living at home, cared for by his and nearby children and grandchildren. He has a 50+ pack year history of smoking and continues to smoke a few cigarettes a day. He has had multiple hospitalizations for respiratory failure, and his requested an assessment for hospice services so that the patient would not have to return to the hospital frequently. He has had sepsis due to community acquired pneumonia, and the family feels unsure about their ability to anticipate his needs when he becomes hypoxic and dyspneic. Lab Values: Abnormal Lab Results 11/20/16 11/20/16 11/20/16 17:00 17:08 23:15 WBC RBC Hgb Hct MCV MCH MCHC RDW Plt Count MPV Neut % (Auto) Lymph % (Auto) [place] % (Auto) Eos % (Auto) Baso % (Auto) Absolute Neuts (auto) Absolute Lymphs (auto) Absolute Monos (auto) Absolute Eos (auto) Absolute Basos (auto) Absolute Nucleated RBC Nucleated RBC % Sodium Potassium Chloride Carbon Dioxide Anion Gap BUN Creatinine Est GFR ( Amer) Est GFR (Non-Af Amer) BUN/Creatinine Ratio Glucose Calcium Troponin I 0.18 H* 0.15 H* Urine Color Urine Appearance Urine pH Ur Specific [place] Urine Protein Urine Ketones Urine Blood Urine Nitrate Urine Bilirubin Urine Urobilinogen Ur Leukocyte Esterase Urine WBC (Auto) Urine RBC (Auto) Ur Squamous Epith Cells Urine Bacteria Urine Glucose Influenza A (Rapid) Negative Influenza B (Rapid) Negative 11/21/16 11/21/16 11/21/16 03:10 05:13 05:13 WBC 18.0 H RBC 3.10 L Hgb 9.7 L Hct 30 L MCV 95 H MCH 31 MCHC 33 RDW 15 Plt Count 263 MPV 7 L Neut % (Auto) 93.1 H Lymph % (Auto) 3.4 L [place] % (Auto) 2.6 Eos % (Auto) 0 Baso % (Auto) 0.9 Absolute Neuts (auto) 16.7 H Absolute Lymphs (auto) 0.6 L Absolute Monos (auto) 0.5 Absolute Eos (auto) 0 Absolute Basos (auto) 0.2 Absolute Nucleated RBC 0 Nucleated RBC % 0 Sodium 138 Potassium 4.2 Chloride 108 Carbon Dioxide 25 Anion Gap 5 BUN 26 H Creatinine 1.04 Est GFR ( Amer) 87.5 Est GFR (Non-Af Amer) 68.0 BUN/Creatinine Ratio 25.0 H Glucose 153 H Calcium 8.1 L Troponin I Urine Color Yellow Urine Appearance Cloudy Urine pH 5.0 Ur Specific [place] 1.018 Urine Protein 1+(30 mg/dl) H Urine Ketones Negative Urine Blood Negative Urine Nitrate Negative Urine Bilirubin Negative Urine Urobilinogen Negative Ur Leukocyte Esterase Negative Urine WBC (Auto) Trace(0-5/hpf) Urine RBC (Auto) Trace(0-2/hpf) Ur Squamous Epith Cells Present H Urine Bacteria 1+ H Urine Glucose 3+(>=500 mg/dl) H Influenza A (Rapid) Influenza B (Rapid) Laboratory Last Values WBC 18.0 10^3/ul (3.5-10.8) H 11/21/16 05:13 RBC 3.10 10^6/ul (4.0-5.4) L 11/21/16 05:13 Hgb 9.7 g/dl (14.0-18.0) L 11/21/16 05:13 Hct 30 % (42-52) L 11/21/16 05:13 MCV 95 fL (80-94) H 11/21/16 05:13 MCH 31 pg (27-31) 11/21/16 05:13 MCHC 33 g/dl (31-36) 11/21/16 05:13 RDW 15 % (10.5-15) 11/21/16 05:13 Plt Count 263 10^3/ul (150-450) 11/21/16 05:13 MPV 7 um3 (7.4-10.4) L 11/21/16 05:13 Neut % (Auto) 93.1 % (38-83) H 11/21/16 05:13 Lymph % (Auto) 3.4 % (25-47) L 11/21/16 05:13 [place] % (Auto) 2.6 % (1-9) 11/21/16 05:13 Eos % (Auto) 0 % (0-6) 11/21/16 05:13 Baso % (Auto) 0.9 % (0-2) 11/21/16 05:13 Absolute Neuts (auto) 16.7 10^3/ul (1.5-7.7) H 11/21/16 05:13 Absolute Lymphs (auto) 0.6 10^3/ul (1.0-4.8) L 11/21/16 05:13 Absolute Monos (auto) 0.5 10^3/ul (0-0.8) 11/21/16 05:13 Absolute Eos (auto) 0 10^3/ul (0-0.6) 11/21/16 05:13 Absolute Basos (auto) 0.2 10^3/ul (0-0.2) 11/21/16 05:13 Absolute Nucleated RBC 0 10^3/ul 11/21/16 05:13 Nucleated RBC % 0 11/21/16 05:13 INR (Anticoag Therapy) 1.15 (0.89-1.11) H 11/20/16 15:20 APTT 30.1 seconds (26.0-36.3) 11/20/16 15:20 Sodium 138 mmol/L (133-145) 11/21/16 05:13 Potassium 4.2 mmol/L (3.5-5.0) 11/21/16 05:13 Chloride 108 mmol/L (101-111) 11/21/16 05:13 Carbon Dioxide 25 mmol/L (22-32) 11/21/16 05:13 Anion Gap 5 mmol/L (2-11) 11/21/16 05:13 BUN 26 mg/dL (6-24) H 11/21/16 05:13 Creatinine 1.04 mg/dL (0.67-1.17) 11/21/16 05:13 Est GFR ( Amer) 87.5 (>60) 11/21/16 05:13 Est GFR (Non-Af Amer) 68.0 (>60) 11/21/16 05:13 BUN/Creatinine Ratio 25.0 (8-20) H 11/21/16 05:13 Glucose 153 mg/dL (70-100) H 11/21/16 05:13 Lactic Acid 1.7 mmol/L (0.5-2.0) 11/20/16 15:20 Calcium 8.1 mg/dL (8.6-10.3) L 11/21/16 05:13 Total Bilirubin 0.70 mg/dL (0.2-1.0) 11/20/16 15:20 AST 15 U/L (13-39) 11/20/16 15:20 ALT 9 U/L (7-52) 11/20/16 15:20 Alkaline Phosphatase 68 U/L (34-104) 11/20/16 15:20 Troponin I 0.15 ng/mL (<0.04) H* 11/20/16 23:15 B-Natriuretic Peptide 465 pg/mL (-100) H 11/20/16 15:20 Total Protein 6.7 g/dL (6.4-8.9) 11/20/16 15:20 Albumin 2.9 g/dL (3.2-5.2) L 11/20/16 15:20 Globulin 3.8 g/dL (2-4) 11/20/16 15:20 Albumin/Globulin Ratio 0.8 (1-3) L 11/20/16 15:20 Procalcitonin 15.3 ng/mL (<0.6) H 11/20/16 15:20 Urine Color Yellow 11/21/16 03:10 Urine Appearance Cloudy 11/21/16 03:10 Urine pH 5.0 (5-9) 11/21/16 03:10 Ur Specific [place] 1.018 (1.010-1.030) 11/21/16 03:10 Urine Protein 1+(30 mg/dl) (Negative) H 11/21/16 03:10 Urine Ketones Negative (Negative) 11/21/16 03:10 Urine Blood Negative (Negative) 11/21/16 03:10 Urine Nitrate Negative (Negative) 11/21/16 03:10 Urine Bilirubin Negative (Negative) 11/21/16 03:10 Urine Urobilinogen Negative (Negative) 11/21/16 03:10 Ur Leukocyte Esterase Negative (Negative) 11/21/16 03:10 Urine WBC (Auto) Trace(0-5/hpf) (Absent) 11/21/16 03:10 Urine RBC (Auto) Trace(0-2/hpf) (Absent) 11/21/16 03:10 Ur Squamous Epith Cells Present (Absent) H 11/21/16 03:10 Urine Bacteria 1+ (Absent) H 11/21/16 03:10 Urine Glucose 3+(>=500 mg/dl) (Negative) H 11/21/16 03:10 Influenza A (Rapid) Negative (Negative) 11/20/16 17:08 Influenza B (Rapid) Negative (Negative) 11/20/16 17:08 - Objective Active Medications: Acetaminophen (Tylenol Tab*) 650 mg PO Q4H PRN PRN Reason: FEVER/PAIN Albuterol (Ventolin 2.5 Mg/3 Ml Neb.Shiela*) 2.5 mg INH Q2H PRN PRN Reason: SOB/WHEEZING Albuterol/Ipratropium (Duoneb (Albuterol 2.5 Mg/Ipratropium 0.5 Mg)) 1 neb INH Q4H [facility] Last Admin: 11/21/16 07:51 Dose: 1 neb Budesonide (Pulmicort Neb*) 0.5 mg INH BID PRN PRN Reason: SHORTNESS OF BREATH Heparin Sodium (Porcine) (Heparin Vial(*)) 5,000 units SUBCUT Q8HR [facility] Last Admin: 11/21/16 05:15 Dose: 5,000 units Ceftriaxone Sodium 1,000 mg/ (Sodium Chloride) 50 mls @ 200 mls/hr IVPB Q24H [facility] Azithromycin 500 mg/ Sodium (Chloride) 250 mls @ 250 mls/hr IVPB Q24H [facility] Sodium Chloride (Ns 0.9% 1000 Ml*) 1,000 mls @ 75 mls/hr IV PER RATE [facility] Methylprednisolone Sodium Succinate (Solu-Medrol*) 60 mg IV Q12H [facility] Last Admin: 11/21/16 05:15 Dose: 60 mg Mometasone Furoate/Formoterol Fumar (Dulera 200/5 Mdi*) 2 puff INH BID [facility] Last Admin: 11/21/16 07:49 Dose: 2 puff Omeprazole (Prilosec Cap*) 20 mg PO DAILY [facility] Last Admin: 11/21/16 09:43 Dose: 20 mg Sertraline HCl (Zoloft*) 100 mg PO QAM [facility] Last Admin: 11/21/16 09:42 Dose: 100 mg Vital Signs: Vital Signs: Temp Pulse Resp BP Pulse Ox 97.2 F 88 18 121/64 98 11/21/16 07:27 11/21/16 08:49 11/21/16 09:51 11/21/16 07:27 11/21/16 09:51 Patient Weight: Weight 130 lb 11.746 oz Intake and Output: Intake & Output 11/19/16 11/20/16 11/21/16 11/22/16 06:59 06:59 06:59 06:59 Intake Total 5022 75 Output Total 1110 250 Balance 3912 -175 Weight 130 lb 11.746 oz Intake: IV Fluids 4922 NS (0.9%) 1872 Oral 100 75 Output: Urine 100 Norris 460 250 Residual 550 16 Fr Temperature Probe 550 ADLs: Meal Record Start: 11/20/16 17: 32 Freq: 09,13,18 Status: Complete Created 11/20/16 17:32 System (Rec: 11/20/16 17:32 System [id number]) Document 11/20/16 18:00 [id number] (Rec: 11/20/16 18:20 [id number] [id number]) ADLs: Meal Record Start: 11/21/16 09: 43 Freq: DAILY@0900,1400,1800 Status: Complete Created 11/21/16 09:43 [id number] (Rec: 11/21/16 09:43 [id number] [id number]) ADLs: Meal Record Start: 11/21/16 09: 47 Freq: DAILY@0900,1400,1800 Status: Active Created 11/21/16 09:47 [id number] (Rec: 11/21/16 09:47 [id number] TELE-L02) Document 11/21/16 10:12 [id number] (Rec: 11/21/16 10:12 [id number] TELE-C11) Intake and Output Start: 11/20/16 17: 32 Freq: 06,14,22 Status: Complete Created 11/20/16 17:32 System (Rec: 11/20/16 17:32 System [id number]) Document 11/20/16 22:00 [id number] (Rec: 11/20/16 22:08 [id number] [facility] [place] Document 11/21/16 03:30 [id number] (Rec: 11/21/16 04:38 [id number] ICU-C16) Document 11/21/16 05:47 [id number] (Rec: 11/21/16 05:47 [id number] ICU-C14) Intake and Output Start: 11/21/16 09: 43 Freq: DAILY@0600,1400,2200 Status: Complete Created 11/21/16 09:43 [id number] (Rec: 11/21/16 09:43 [id number] [id number]) Intake and Output Start: 11/21/16 09: 47 Freq: DAILY@0600,1400,2200 Status: Active Created 11/21/16 09:47 [id number] (Rec: 11/21/16 09:47 [id number] [id number]) General Impression: Demented, unsmiling, nonverbal man in NAD Head: Symmetrical Neck: NL Appearance and Movements; NL JVP Respiratory: Symmetrical Chest Expansion and Respiratory Effort Abdominal: NL Sounds; No Tenderness; No Distention Extremities: No Clubbing, Cyanosis - Assessment Assessment: This patient has advanced COPD, and has DNR/DNI status. He has nothing to gain from repeated hospitalizations, as most of his care could be effectively delivered at home via hospice personnel. His family would feel much more secure with weekly home nursing visits and availability of hospice nurses 30/03. They do not want him to return to the hospital for his respiratory failure. He qualifies for hospice services with a diagnosis of end-stage COPD. He lives in [facility] so needs referral to [facility] there. Thank you. - Plan Consult Plan (MU): Hospice - Time On Unit Date of Evaluation: 11/21/16 Hospice Consult Time in: 01:00 Hospice Consult Time Out: 01:55 Hospice Consult Time Total: 55 > 50% of Time Spend In Counseling or Coordinating Care: Yes
[2016-11-21] MEDS: cefTRIAXone VIAL(*) 1,000 MG in NS 0.9% 50 ML* 50 ML IVPB SCH (16:16)
[2016-11-21] MEDS: Azithromycin IV(*) 500 MG in NS 0.9% 250 ML* 250 ML IVPB SCH (16:47)
[2016-11-22] MEDS: Albuterol/Ipratropium NEB.SOL* Albuterol 2.5 MG/Ipratropium 0.5 MG 3 ML INH SCH ×3 (00:51→08:18)
[2016-11-22] MEDS: methylPREDNISolone 125 MG* 2 ML VIAL IV SCH (05:24)
[2016-11-22] MEDS: Heparin VIAL(*) 5000 UNITS/ML VIAL (FIVE THOUSAND) SUBCUT SCH ×3 (05:26→21:55)
[2016-11-22] MEDS: Mometasone/Formoter 200/5 MDI INH SCH (08:18)
[2016-11-22] MEDS: Sertraline* 100 MG TAB PO SCH (08:49)
[2016-11-22] MEDS: Omeprazole CAP* 20 MG PO SCH (08:49)
[2016-11-22] MEDS ORDERED: Spiriva Inhaler DEVICE* 1 EACH DEVICE INH ONE (10:00)
--- NOTE | 2016-11-22 13:11 | PN ---
Subjective Date of Service: 11/22/16 Interval History: Pt is at baseline, confused,but pleasant and cooperative, no complaints. Objective Active Medications: Acetaminophen (Tylenol Tab*) 650 mg PO Q4H PRN PRN Reason: FEVER/PAIN Albuterol (Ventolin 2.5 Mg/3 Ml Neb.Shiela*) 2.5 mg INH Q2H PRN PRN Reason: SOB/WHEEZING Budesonide (Pulmicort Neb*) 0.5 mg INH BID PRN PRN Reason: SHORTNESS OF BREATH Digoxin (Lanoxin Tab*) 0.125 mg PO 1700 [facility] Heparin Sodium (Porcine) (Heparin Vial(*)) 5,000 units SUBCUT Q8HR [facility] Last Admin: 11/22/16 05:26 Dose: 5,000 units Ceftriaxone Sodium 1,000 mg/ (Sodium Chloride) 50 mls @ 200 mls/hr IVPB Q24H [facility] Last Admin: 11/21/16 16:16 Dose: 200 mls/hr Azithromycin 500 mg/ Sodium (Chloride) 250 mls @ 250 mls/hr IVPB Q24H [facility] Last Admin: 11/21/16 16:47 Dose: 250 mls/hr Methylprednisolone Sodium Succinate (Solu-Medrol*) 60 mg IV Q12H [facility] Last Admin: 11/22/16 05:24 Dose: 60 mg Omeprazole (Prilosec Cap*) 20 mg PO DAILY [facility] Last Admin: 11/22/16 08:49 Dose: 20 mg Sertraline HCl (Zoloft*) 100 mg PO QAM [facility] Last Admin: 11/22/16 08:49 Dose: 100 mg Tiotropium [place] (Spiriva Cap.Inh*) 1 cap INH DAILY [facility] Vital Signs 11/21/16 11/21/16 11/21/16 13:44 16:14 18:25 Temperature 98.4 F Pulse Rate 79 99 88 Respiratory 18 24 18 Rate Blood Pressure 132/59 (mmHg) O2 Sat by Pulse 94 96 96 Oximetry 11/21/16 11/21/16 11/21/16 19:50 20:00 20:58 Temperature 97.7 F Pulse Rate 98 109 Respiratory 18 20 20 Rate Blood Pressure 136/81 (mmHg) O2 Sat by Pulse 95 96 96 Oximetry 11/21/16 11/22/16 11/22/16 23:19 00:53 03:53 Temperature 97.5 F 99.0 F Pulse Rate 102 93 95 Respiratory 16 18 16 Rate Blood Pressure 138/75 133/78 (mmHg) O2 Sat by Pulse 92 97 96 Oximetry 11/22/16 11/22/16 11/22/16 05:51 06:01 07:08 Temperature Pulse Rate 90 Respiratory 18 18 Rate Blood Pressure (mmHg) O2 Sat by Pulse 98 98 98 Oximetry 11/22/16 08:21 Temperature Pulse Rate 64 Respiratory 18 Rate Blood Pressure (mmHg) O2 Sat by Pulse 93 Oximetry Oxygen Devices in Use Now: Nasal Cannula - at 4 L Nc Appearance: 86 yo M in nAD, aAOx1 Eyes: No Scleral Icterus, PERRLA Ears/Nose/Mouth/Throat: NL Teeth, Lips, Gums, Mucous Membranes Moist Neck: NL Appearance and Movements; NL JVP, Trachea Midline Respiratory: Symmetrical Chest Expansion and Respiratory Effort, - - rhonchi b/ l bases Cardiovascular: - - irregular Abdominal: NL Sounds; No Tenderness; No Distention, No Hepatosplenomegaly Lymphatic: No Cervical Adenopathy Extremities: No Edema, No Clubbing, Cyanosis Skin: No Rash or Ulcers, No Nodules or Sclerosis Neurological: NL Muscle Strength and Tone Result Diagrams: 11/21/16 05:13 11/21/16 05:13 Additional Lab and Data: Lab Results 11/20/16 11/20/16 11/20/16 Range/Units 15:20 15:20 15:20 WBC 22.7 H (3.5-10.8) 10^3/ul RBC 3.74 L (4.0-5.4) 10^6/ul Hgb 11.8 L (14.0-18.0) g/dl Hct 36 L (42-52) % MCV 95 H (80-94) fL MCH 32 H (27-31) pg MCHC 33 (31-36) g/dl RDW 15 (10.5-15) % Plt Count 309 (150-450) 10^3/ul MPV 7 L (7.4-10.4) um3 Neut % (Auto) 90.3 H (38-83) % Lymph % (Auto) 3.0 L (25-47) % Sharp % (Auto) 6.4 (1-9) % Eos % (Auto) 0.1 (0-6) % Baso % (Auto) 0.2 (0-2) % Absolute Neuts (auto) 20.6 H (1.5-7.7) 10^3/ul Absolute Lymphs (auto) 0.7 L (1.0-4.8) 10^3/ul Absolute Monos (auto) 1.4 H (0-0.8) 10^3/ul Absolute Eos (auto) 0 (0-0.6) 10^3/ul Absolute Basos (auto) 0 (0-0.2) 10^3/ul Absolute Nucleated RBC 0 10^3/ul Nucleated RBC % 0 INR (Anticoag Therapy) 1.15 H (0.89-1.11) APTT 30.1 (26.0-36.3) seconds Sodium 138 (133-145) mmol/L Potassium 4.1 (3.5-5.0) mmol/L Chloride 100 L (101-111) mmol/L Carbon Dioxide 30 (22-32) mmol/L Anion Gap 8 (2-11) mmol/L BUN 32 H (6-24) mg/dL Creatinine 1.52 H (0.67-1.17) mg/dL Est GFR ( Amer) 56.5 (>60) Est GFR (Non-Af Amer) 43.9 (>60) BUN/Creatinine Ratio 21.1 H (8-20) Glucose 108 H (70-100) mg/dL Lactic Acid (0.5-2.0) mmol/L Calcium 9.1 (8.6-10.3) mg/dL Total Bilirubin 0.70 (0.2-1.0) mg/dL AST 15 (13-39) U/L ALT 9 (7-52) U/L Alkaline Phosphatase 68 (34-104) U/L Troponin I 0.28 H* (<0.04) ng/mL B-Natriuretic Peptide ( - 100) pg/mL Total Protein 6.7 (6.4-8.9) g/dL Albumin 2.9 L (3.2-5.2) g/dL Globulin 3.8 (2-4) g/dL Albumin/Globulin Ratio 0.8 L (1-3) 11/20/16 11/20/16 Range/Units 15:20 15:20 WBC (3.5-10.8) 10^3/ul RBC (4.0-5.4) 10^6/ul Hgb (14.0-18.0) g/dl Hct (42-52) % MCV (80-94) fL MCH (27-31) pg MCHC (31-36) g/dl RDW (10.5-15) % Plt Count (150-450) 10^3/ul MPV (7.4-10.4) um3 Neut % (Auto) (38-83) % Lymph % (Auto) (25-47) % Sharp % (Auto) (1-9) % Eos % (Auto) (0-6) % Baso % (Auto) (0-2) % Absolute Neuts (auto) (1.5-7.7) 10^3/ul Absolute Lymphs (auto) (1.0-4.8) 10^3/ul Absolute Monos (auto) (0-0.8) 10^3/ul Absolute Eos (auto) (0-0.6) 10^3/ul Absolute Basos (auto) (0-0.2) 10^3/ul Absolute Nucleated RBC 10^3/ul Nucleated RBC % INR (Anticoag Therapy) (0.89-1.11) APTT (26.0-36.3) seconds Sodium (133-145) mmol/L Potassium (3.5-5.0) mmol/L Chloride (101-111) mmol/L Carbon Dioxide (22-32) mmol/L Anion Gap (2-11) mmol/L BUN (6-24) mg/dL Creatinine (0.67-1.17) mg/dL Est GFR ( Amer) (>60) Est GFR (Non-Af Amer) (>60) BUN/Creatinine Ratio (8-20) Glucose (70-100) mg/dL Lactic Acid 1.7 (0.5-2.0) mmol/L Calcium (8.6-10.3) mg/dL Total Bilirubin (0.2-1.0) mg/dL AST (13-39) U/L ALT (7-52) U/L Alkaline Phosphatase (34-104) U/L Troponin I (<0.04) ng/mL B-Natriuretic Peptide 465 H ( - 100) pg/mL Total Protein (6.4-8.9) g/dL Albumin (3.2-5.2) g/dL Globulin (2-4) g/dL Albumin/Globulin Ratio (1-3) Microbiology and Other Data: Microbiology 11/20/16 17:00 Influenza Types A,B Antigen ([facility]) - Final Nasal Specimen received for Influenza A/B Molecular testing Assess/Plan/Problems-Billing Assessment: 86 yo M with h/o dementia and COPD (02 dependent) presented with pneumonia - Patient Problems (1) Acute and chronic respiratory failure Comment: due to pneumonia. Pt has h/o chronic hypoxemic respiratory failure( on at home) Improving, down to 4 L Nc. (2) Pneumonia Comment: CAP, sepsis at admission. Continue azithro and ceftriaxone rapid flu neg blood cx neg to date (3) Atrial fibrillation Comment: Had a smilar presentation one monht ago. now still in A. fib,rate increased today. will restart digoxin. Family interested in hospice at discharge, due to that anticoagulation not indicated. (4) Acute renal failure Comment: Resolved with IVFs. Due to sepsis (5) Elevated troponin Comment: Trop peaked 0.2, suspect demand ischemia. No CP (6) History of dementia Comment: moderate (7) COPD exacerbation Comment: Continue steroids, nebs. (8) DVT prophylaxis Comment: heparin sc (9) DNR (do not resuscitate) Comment: palliative care consult appreciated. Pt will be referred to hospice at discharge (10) Urinary retention Comment: [facility] d/c'd on 11/21/16 Status and Disposition: inpatient, plan to d/c to home with hospice on Thursday
[2016-11-22] MEDS: Tiotropium CAP.INH* CAP.INH/18 MCG (USE ORDER SET !) INH SCH (14:25)
[2016-11-22] MEDS: cefTRIAXone VIAL(*) 1,000 MG in NS 0.9% 50 ML* 50 ML IVPB SCH (16:10)
[2016-11-22] MEDS: Azithromycin IV(*) 500 MG in NS 0.9% 250 ML* 250 ML IVPB SCH (16:53)
[2016-11-22] MEDS ORDERED: Digoxin TAB* 0.125 MG PO SCH (17:00)
[2016-11-22] MEDS: CMC:Melatonin (NF) 3 MG TAB PO SCH (21:56)
[2016-11-23] MEDS: Heparin VIAL(*) 5000 UNITS/ML VIAL (FIVE THOUSAND) SUBCUT SCH ×3 (06:00→21:47)
[2016-11-23] MEDS: Tiotropium CAP.INH* CAP.INH/18 MCG (USE ORDER SET !) INH SCH (09:50)
[2016-11-23] MEDS: Omeprazole CAP* 20 MG PO SCH (10:00)
[2016-11-23] MEDS: predniSONE TAB* 20 MG PO SCH (10:00)
[2016-11-23] MEDS: Sertraline* 100 MG TAB PO SCH (10:01)
--- NOTE | 2016-11-23 14:18 | PN ---
Subjective Date of Service: 11/23/16 Interval History: pt feels well. no new complaints. Disoriented and [place] Objective Active Medications: Acetaminophen (Tylenol Tab*) 650 mg PO Q4H PRN PRN Reason: FEVER/PAIN Albuterol (Ventolin 2.5 Mg/3 Ml Neb.Shiela*) 2.5 mg INH Q2H PRN PRN Reason: SOB/WHEEZING Budesonide (Pulmicort Neb*) 0.5 mg INH BID PRN PRN Reason: SHORTNESS OF BREATH Digoxin (Lanoxin Tab*) 0.125 mg PO EVERY OTHER DAY [facility] Heparin Sodium (Porcine) (Heparin Vial(*)) 5,000 units SUBCUT Q8HR [facility] Last Admin: 11/23/16 13:37 Dose: 5,000 units Ceftriaxone Sodium 1,000 mg/ (Sodium Chloride) 50 mls @ 200 mls/hr IVPB Q24H [facility] Last Admin: 11/22/16 16:10 Dose: 200 mls/hr Azithromycin 500 mg/ Sodium (Chloride) 250 mls @ 250 mls/hr IVPB Q24H [facility] Last Admin: 11/22/16 16:53 Dose: 250 mls/hr Melatonin (Melatonin (Nf)) 3 mg PO BEDTIME [facility] Last Admin: 11/22/16 21:56 Dose: 3 mg Omeprazole (Prilosec Cap*) 20 mg PO DAILY [facility] Last Admin: 11/23/16 10:00 Dose: 20 mg Prednisone (Deltasone Tab*) 40 mg PO DAILY [facility] Last Admin: 11/23/16 10:00 Dose: 40 mg Sertraline HCl (Zoloft*) 100 mg PO QAM [facility] Last Admin: 11/23/16 10:01 Dose: 100 mg Tiotropium [place] (Spiriva Cap.Inh*) 1 cap INH DAILY [facility] Last Admin: 11/23/16 09:50 Dose: 1 cap Vital Signs 11/22/16 11/22/16 11/22/16 15:41 20:00 23:59 Temperature 97.6 F 97.6 F Pulse Rate 93 92 Respiratory 20 20 16 Rate Blood Pressure 148/85 167/113 (mmHg) O2 Sat by Pulse 96 96 96 Oximetry 11/23/16 11/23/16 11/23/16 00:00 07:59 08:00 Temperature Pulse Rate 63 Respiratory 18 18 Rate Blood Pressure 153/90 (mmHg) O2 Sat by Pulse 97 96 Oximetry Oxygen Devices in Use Now: Nasal Cannula - at 4 L Nc Appearance: 86 yo M in NAD, AAOx2 Eyes: No Scleral Icterus, PERRLA Ears/Nose/Mouth/Throat: NL Teeth, Lips, Gums, Mucous Membranes Moist Neck: NL Appearance and Movements; NL JVP, Trachea Midline Respiratory: Symmetrical Chest Expansion and Respiratory Effort, - - distant breath sounds b/l , bibasiliar rhonchi improved Cardiovascular: NL Sounds; No Murmurs; No JVD, - - irregular Abdominal: NL Sounds; No Tenderness; No Distention, No Hepatosplenomegaly Lymphatic: No Cervical Adenopathy Extremities: No Clubbing, Cyanosis, - - trace pedeal edema Neurological: NL Muscle Strength and Tone Result Diagrams: 11/21/16 05:13 11/21/16 05:13 Additional Lab and Data: Lab Results 11/20/16 11/20/16 11/20/16 Range/Units 15:20 15:20 15:20 WBC 22.7 H (3.5-10.8) 10^3/ul RBC 3.74 L (4.0-5.4) 10^6/ul Hgb 11.8 L (14.0-18.0) g/dl Hct 36 L (42-52) % MCV 95 H (80-94) fL MCH 32 H (27-31) pg MCHC 33 (31-36) g/dl RDW 15 (10.5-15) % Plt Count 309 (150-450) 10^3/ul MPV 7 L (7.4-10.4) um3 Neut % (Auto) 90.3 H (38-83) % Lymph % (Auto) 3.0 L (25-47) % [place] % (Auto) 6.4 (1-9) % Eos % (Auto) 0.1 (0-6) % Baso % (Auto) 0.2 (0-2) % Absolute Neuts (auto) 20.6 H (1.5-7.7) 10^3/ul Absolute Lymphs (auto) 0.7 L (1.0-4.8) 10^3/ul Absolute Monos (auto) 1.4 H (0-0.8) 10^3/ul Absolute Eos (auto) 0 (0-0.6) 10^3/ul Absolute Basos (auto) 0 (0-0.2) 10^3/ul Absolute Nucleated RBC 0 10^3/ul Nucleated RBC % 0 INR (Anticoag Therapy) 1.15 H (0.89-1.11) APTT 30.1 (26.0-36.3) seconds Sodium 138 (133-145) mmol/L Potassium 4.1 (3.5-5.0) mmol/L Chloride 100 L (101-111) mmol/L Carbon Dioxide 30 (22-32) mmol/L Anion Gap 8 (2-11) mmol/L BUN 32 H (6-24) mg/dL Creatinine 1.52 H (0.67-1.17) mg/dL Est GFR ( Amer) 56.5 (>60) Est GFR (Non-Af Amer) 43.9 (>60) BUN/Creatinine Ratio 21.1 H (8-20) Glucose 108 H (70-100) mg/dL Lactic Acid (0.5-2.0) mmol/L Calcium 9.1 (8.6-10.3) mg/dL Total Bilirubin 0.70 (0.2-1.0) mg/dL AST 15 (13-39) U/L ALT 9 (7-52) U/L Alkaline Phosphatase 68 (34-104) U/L Troponin I 0.28 H* (<0.04) ng/mL B-Natriuretic Peptide ( - 100) pg/mL Total Protein 6.7 (6.4-8.9) g/dL Albumin 2.9 L (3.2-5.2) g/dL Globulin 3.8 (2-4) g/dL Albumin/Globulin Ratio 0.8 L (1-3) 11/20/16 11/20/16 Range/Units 15:20 15:20 WBC (3.5-10.8) 10^3/ul RBC (4.0-5.4) 10^6/ul Hgb (14.0-18.0) g/dl Hct (42-52) % MCV (80-94) fL MCH (27-31) pg MCHC (31-36) g/dl RDW (10.5-15) % Plt Count (150-450) 10^3/ul MPV (7.4-10.4) um3 Neut % (Auto) (38-83) % Lymph % (Auto) (25-47) % [place] % (Auto) (1-9) % Eos % (Auto) (0-6) % Baso % (Auto) (0-2) % Absolute Neuts (auto) (1.5-7.7) 10^3/ul Absolute Lymphs (auto) (1.0-4.8) 10^3/ul Absolute Monos (auto) (0-0.8) 10^3/ul Absolute Eos (auto) (0-0.6) 10^3/ul Absolute Basos (auto) (0-0.2) 10^3/ul Absolute Nucleated RBC 10^3/ul Nucleated RBC % INR (Anticoag Therapy) (0.89-1.11) APTT (26.0-36.3) seconds Sodium (133-145) mmol/L Potassium (3.5-5.0) mmol/L Chloride (101-111) mmol/L Carbon Dioxide (22-32) mmol/L Anion Gap (2-11) mmol/L BUN (6-24) mg/dL Creatinine (0.67-1.17) mg/dL Est GFR ( Amer) (>60) Est GFR (Non-Af Amer) (>60) BUN/Creatinine Ratio (8-20) Glucose (70-100) mg/dL Lactic Acid 1.7 (0.5-2.0) mmol/L Calcium (8.6-10.3) mg/dL Total Bilirubin (0.2-1.0) mg/dL AST (13-39) U/L ALT (7-52) U/L Alkaline Phosphatase (34-104) U/L Troponin I (<0.04) ng/mL B-Natriuretic Peptide 465 H ( - 100) pg/mL Total Protein (6.4-8.9) g/dL Albumin (3.2-5.2) g/dL Globulin (2-4) g/dL Albumin/Globulin Ratio (1-3) Microbiology and Other Data: Microbiology 11/20/16 17:00 Influenza Types A,B Antigen ([facility]) - Final Nasal Specimen received for Influenza A/B Molecular testing Assess/Plan/Problems-Billing Assessment: 86 yo M with h/o dementia and COPD (02 dependent) presented with pneumonia - Patient Problems (1) Acute and chronic respiratory failure Comment: due to pneumonia. Pt has h/o chronic hypoxemic respiratory failure( on at home) Improving, down to 4 L Nc. (2) Pneumonia Comment: CAP, sepsis at admission. Continue azithro and ceftriaxone rapid flu neg blood cx neg to date (3) Atrial fibrillation Comment: Had a smilar presentation one month ago. now still in A. fib-rate controled. digoxin started on 11/23/16 Family interested in hospice at discharge, due to that anticoagulation not indicated. (4) Acute renal failure Comment: Resolved with IVFs. Due to sepsis (5) Elevated troponin Comment: Trop peaked 0.2, suspect demand ischemia. No CP (6) History of dementia Comment: moderate (7) COPD exacerbation Comment: Continue steroids, nebs. (8) DVT prophylaxis Comment: heparin sc (9) DNR (do not resuscitate) Comment: palliative care consult appreciated. Pt will be referred to hospice at discharge (10) Urinary retention Comment: [facility] d/c'd on 11/21/16, no problems with urination today Status and Disposition: inpatient, plan to d/c to home with hospice on Thursday
[2016-11-23] MEDS: cefTRIAXone VIAL(*) 1,000 MG in NS 0.9% 50 ML* 50 ML IVPB SCH (16:14)
[2016-11-23] MEDS: Azithromycin IV(*) 500 MG in NS 0.9% 250 ML* 250 ML IVPB SCH (17:40)
[2016-11-23] MEDS: CMC:Melatonin (NF) 3 MG TAB PO SCH (21:46)
[2016-11-24] MEDS: Heparin VIAL(*) 5000 UNITS/ML VIAL (FIVE THOUSAND) SUBCUT SCH (06:26)
[2016-11-24] MEDS: Tiotropium CAP.INH* CAP.INH/18 MCG (USE ORDER SET !) INH SCH (08:01)
[2016-11-24 08:37] VITALS: BP 150/96
[2016-11-24] MEDS ORDERED: Digoxin TAB* 0.125 MG PO SCH (09:00)
[2016-11-24] MEDS: predniSONE TAB* 20 MG PO SCH (09:56)
[2016-11-24] MEDS: Sertraline* 100 MG TAB PO SCH (09:56)
[2016-11-24] MEDS: Omeprazole CAP* 20 MG PO SCH (09:56)
--- NOTE | 2016-11-25 03:40 | DS ---
DISCHARGE SUMMARY: DATE OF ADMISSION: 11/20/16 DATE OF DISCHARGE: 11/24/16 PRIMARY CARE PROVIDER: Dr. Rutledge. DISCHARGE DIAGNOSES: 1. Acute on chronic respiratory failure due to community-acquired pneumonia and chronic obstructive pulmonary disease exacerbation. 2. New diagnosis of paroxysmal atrial fibrillation. 3. Mild elevation of troponin due to demand ischemia. SECONDARY DIAGNOSES: 1. Severe chronic obstructive pulmonary disease, oxygen dependent. 2. History of chronic respiratory failure. 3. Dementia. 4. Depression. 5. Pulmonary hypertension. 6. Gastroesophageal reflux disease. MEDICATIONS AT DISCHARGE: New medications include: 1. Prednisone 20 mg daily. 2. Omnicef 300 mg b.i.d. 3. Digoxin 0.125 mg every other day. The remaining medications are unchanged and include: 1. Albuterol inhaler on a p.r.n. basis. 2. Pulmicort inhaler b.i.d. 3. Bumetanide 1 mg daily. 4. Wellbutrin XL 150 mg daily. 5. Omeprazole 20 mg daily. 6. Probiotic 1 tablet daily. 7. Zoloft 100 mg daily. 8. Spiriva 1 capsule daily. LABORATORY DATA AND STUDIES PERFORMED DURING THE HOSPITAL STAY: Included: On 11/21/16, sodium of 138, potassium 4.2, chloride 108, carbon dioxide 25, BUN 26 , creatinine 1.04. White blood cell count of 18.0, hemoglobin of 9.7, hematocrit of 30, platelets of 263. Influenza tests were negative. Urine cultures showed no growth. The patient was negative for legionella and Strep pneumo antigen. Blood cultures were negative to date. Transthoracic echocardiogram showed EF of 60% to 65% with concentric LVH, RV size mildly dilated, mild tricuspid regurgitation, and mild pulmonary hypertension. CONSULTATIONS DURING THE HOSPITAL STAY: Included, Dr. Patricia Thibodeaux from palliative hospice care. HOSPITALIZATION COURSE: Britany Ruelas is an 86-year-old male with history of advanced COPD and dementia, who presents complaining of shortness of breath and was diagnosed with bibasilar pneumonia. He was treated with azithromycin and ceftriaxone and did well. Family indicated that they want mostly comfort for the patient. Due to that, Palliative consult was requested. Dr. Patricia Thibodeaux saw the patient on 11/11/16 and deemed the patient a good candidate for outpatient and at home hospice. The patient did very well over the course of his hospital stay. He was weaned off from intravenous Solu-Medrol to p.o. prednisone at the time of discharge. He continued to be afebrile and was down to 4 L of oxygen prior to discharge. Please note that the patient was also noted to be in paroxysmal atrial fibrillation during his hospital stay for which he received digoxin on every other day basis with good results. The family due to the patient's fragility was unsure about anticoagulation especially that they are thinking about hospice at discharge. At this point, they have not decided on anticoagulation for cardioembolic stroke prevention, but if they in fact decide not to take the patient on home hospice, they would like to discuss this further with their primary care provider. PHYSICAL EXAMINATION: At the time of discharge, blood pressure of 150/96, heart rate of 85 and regular, respiratory rate 15, oxygen saturation 96% on 4 L of nasal cannula, temperature of 97.5. General: The patient is a very pleasant 87-year-old male, who is not in any acute distress. The patient is oriented to self only. HEENT: Head is atraumatic and normocephalic. Eyes: Pupils, equal, and reactive to light and accommodation. Oropharynx is clear. Mucosa moist. Neck: Supple. No JVD. No bruits bilaterally. Cardiovascular: Irregularly irregular rhythm, no murmurs. Respiratory: Distant breath sounds bilaterally with faint crackles at the left lower lung. Abdomen: Soft, nontender. Bowel sounds are present in all 4 quadrants. Extremities: There is trace bilateral ankle edema. +2 pulses bilaterally. No clubbing or cyanosis. Neuro Evaluation: Speech clear. Cranial nerves II through XII grossly intact. Motor strength is 5/5 bilaterally. At discharge, the patient was referred to visiting nurse services. The patient is also recommended to follow with his primary care provider in 4 to 7 days after discharge. Please note that this is a short summary of the patient's hospital stay. Please see refer to further medical records for details. TIME SPENT: Approximately 45 minutes was spent on the patient's discharge. CC: Dr. Rutledge; Dr. Patricia Thibodeaux from palliative hospice care.* [id number]/CPS #: [id number] MTDD
== END 2016-11-24 13:57 | disposition home or self-care (01) | DRG 871 ==
LOC: ED 14:16 → ICU 16:04 → MEDTELE 11-21 07:44
PROVIDERS: ADMIT Internal Medicine; ATTEND Internal Medicine
DX: A41.9 Sepsis, unspecified organism (principal); J96.20 Acute and chronic respiratory failure, unspecified whether with hypoxia or hypercapnia; J18.9 Pneumonia, unspecified organism; N17.9 Acute kidney failure, unspecified; I48.0 Paroxysmal atrial fibrillation; I24.8 Other forms of acute ischemic heart disease; F03.90 Unspecified dementia, unspecified severity, without behavioral disturbance, psychotic disturbance, mood disturbance, and anxiety; I27.2 Other secondary pulmonary hypertension; J44.1 Chronic obstructive pulmonary disease with (acute) exacerbation; R65.20 Severe sepsis without septic shock; F32.9 Major depressive disorder, single episode, unspecified; K21.9 Gastro-esophageal reflux disease without esophagitis; E78.00 Pure hypercholesterolemia, unspecified; E78.5 Hyperlipidemia, unspecified; I25.2 Old myocardial infarction; R33.9 Retention of urine, unspecified; F17.210 Nicotine dependence, cigarettes, uncomplicated; Z66 Do not resuscitate; Z99.81 Dependence on supplemental oxygen
CPT/HCPCS: 36415; 71010; 80048; 80053; 81003; 81015; 82570; 83605; 83880; 84145; 84300; 84484; 85025; 85610; 85730; 87040; 87070; 87077; 87086; 87205; 87502; 87899; 93005; 93306; 94640; 94760; 99406; A9270-GY; J0456; J0696; J1160; J1644; J2930; J7512

== ENCOUNTER 2016-12-31 12:13 | Observation (INO) | payer MEDICARE, BC ==
[2016-12-31] MEDS ORDERED: NS 0.9% 1000 ML* 1,000 ML IV SCH ×2 (13:30→16:45)
--- NOTE | 2016-12-31 13:59 | RAD ---
INDICATION: Fever and cough. COMPARISON: Comparison is made with a prior chest x-ray study from October 17 2016. TECHNIQUE: A portable view of the chest was obtained. FINDINGS: Cardiac and mediastinal contours appear to be within normal limits. There are patchy infiltrates at both lung bases which are small in size and improved from the prior study. No pleural effusion is seen. IMPRESSION: BIBASILAR INFILTRATES IMPROVED FROM THE PRIOR EXAM.
[2016-12-31 14:09] LABS: Hematocrit 39 % (42-52); Hemoglobin 12.7 g/dl (14.0-18.0); Mean Corpuscular HGB Conc 32 g/dl (31-36); Mean Corpuscular Hemoglobin 30 pg (27-31); Mean Corpuscular Volume 94 fL (80-94); Mean Platelet Volume 8 um3 (7.4-10.4); Red Blood Count 4.19 10^6/ul (4.0-5.4); Red Cell Distribution Width 16 % (10.5-15)
[2016-12-31 14:24] LABS: Troponin I 0.01 ng/mL (<0.04)
[2016-12-31 14:25] LABS: Albumin 3.3 g/dL (3.2-5.2); BUN/Creatinine Ratio 28.6 (8-20); C Reactive Protein 49.87 mg/L (< 5.00); Calcium 8.9 mg/dL (8.6-10.3); EGFR African American 74.9 (>60); EGFR Non-African American 58.2 (>60); Globulin 3.4 g/dL (2-4); Potassium 3.9 mmol/L (3.5-5.0); Total Bilirubin 0.5 mg/dL (0.2-1.0); Total Protein 6.7 g/dL (6.4-8.9)
[2016-12-31 14:32] LABS: Digoxin 0.2 ng/ml (0.8-2.0)
[2016-12-31 14:39] LABS: TSH (Thyroid Stimulating Horm) 1.33 mcIU/mL (0.34-5.60)
[2016-12-31] MEDS ORDERED: cefTRIAXone(*) 1 GM in NS 0.9% 50 ML* 50 ML IVPB ONE (15:09)
[2016-12-31] MEDS ORDERED: Azithromycin IV(*) 500 MG in NS 0.9% 250 ML* 250 ML IVPB ONE (15:09)
[2016-12-31] MEDS ORDERED: Budesonide NEB* 0.5 MG/2 ML NEB.SOLN INH PRN (16:33)
[2016-12-31] MEDS ORDERED: Albuterol 2.5 MG/3 ML NEB.SOL* (0.083%) INH PRN (16:33)
--- NOTE | 2016-12-31 16:43 | ED ---
Kaylan Avalos Erika, scribed for Wellington Robin MD on 12/31/16 at 1331 . HPI Febrile Illness - HPI Summary HPI Summary: Patient is an 86-year-old male presenting to the ED with a CC of fever. Per , patient developed a fever around 101 last night, associated with chills. Fever resolved by this morning. Family also reports that patient has been complaining of watery eyes, nasal discharge, sore throat, and cough. Cough is productive with blood-tinged sputum. Family also notes some confusion, but states pt has confusion intermittently at baseline. Patient denies abdominal pain, diarrhea, urinary symptoms, and rashes. Patient has been eating well, per family. notes that patient has chronic pedal edema and occasionally takes Bumex. They also report pt has a wound on the right foot which is healing since use of silvadine and an Abx ointment. Hx COPD - patient uses 4L home O2. Hx dementia. Hx smoking. - History of Current Complaint Chief Complaint: EDFever Time Seen by Provider: 12/31/16 13:11 Hx Obtained From: Patient, Family/Insurance Broker Onset/Duration: Started Days Ago - 1 day, Atraumatic, Resolved - fever has resolved Timing: Constant Initial Severity: Moderate Current Severity: None Pain Intensity: 0 Pain Scale Used: 0-10 Numeric Associated Signs and Symptoms: Chills, Cough, Sore Throat, Other: - nasal discharge - Additional Pertinent History Primary Care Physician: YAMILETH - Allergy/Home Medications Allergies/Adverse Reactions: Allergies Allergy/AdvReac Type Severity Reaction Status Date / Time No Known Allergies Allergy Verified 12/31/16 12:16 PMH/Surg Hx/FS Hx/Imm Hx Endocrine/Hematology History: Denies: Hx Diabetes Cardiovascular History: Reports: Hx Hypotension Denies: Hx Congestive Heart Failure, Hx Hypercholesterolemia, Hx Hypertension , Hx Pacemaker/ICD, Other Cardiovascular Problems/Disorders Respiratory History: Reports: Hx Chronic Bronchitis, Hx Chronic Obstructive Pulmonary Disease (COPD), Hx Pneumonia, Other Respiratory Problems/Disorders - HYPOXIA , OCCASIONAL smoker, emphysema GI History: Reports: Hx Gastroesophageal Reflux Disease, Hx Ulcer - HX OF, Other GI Disorders - RECTAL BLEEDING History: Denies: Hx Acute Renal Failure, Hx Dialysis, Hx Renal Disease Musculoskeletal History: Reports: Hx Back Problems - back fracture Denies: Hx Arthritis, Hx Osteoporosis Sensory History: Reports: Hx Cataracts - surgery, Hx Contacts or Glasses - for reading, Hx Hearing Problem Denies: Hx Hearing Aid Opthamlomology History: Reports: Hx Cataracts - surgery, Hx Contacts or Glasses - for reading Neurological History: Reports: Hx Dementia, Other Neuro Impairments/Disorders - DEMENTIA Psychiatric History: Reports: Hx Anxiety, Hx Depression, Other Psychiatric Issues/Disorders - GETS CONFUSED AT NIGHT PER FAMILY ON LAST ADMISSION Denies: Hx Panic Disorder - Surgical History Surgery Procedure, Year, and Place: TONSILLECTOMY CHILD. BILAT CATARACTS [place] Hx Anesthesia Reactions: No - Immunization History Date of Tetanus Vaccine: unk Date of Influenza Vaccine: 2013 Infectious Disease History: Denies: Traveled Outside the [place] in Last 30 Days - Family History Known Family History: Positive: Respiratory Disease Family History: Father - Lung CA - Social History Occupation: Retired Lives: With Family Alcohol Use: None Hx Substance Use: No Substance Use Type: Reports: None Hx Tobacco Use: Yes Smoking Status (MU): Light Every Day Tobacco Smoker Type: Cigarettes Amount Used/How Often: 10/DAY Length of Time of Smoking/Using Tobacco: 65 YRS Have You Smoked in the Last Year: Yes Review of Systems Positive: Fever, Chills Positive: Drainage - watery Positive: Sore Throat, Nasal Discharge Positive: Cough Negative: Abdominal Pain, Diarrhea Negative: dysuria, frequency Positive: Edema - chronic pedal edema Skin: Other - wound to right foot Negative: Rash Neurological: Other - mild confusion All Other Systems Reviewed And Are Negative: Yes Physical Exam Triage Information Reviewed: Yes Vital Signs On Initial Exam: Initial Vitals Temp Pulse Resp BP Pulse Ox 97.5 F 87 17 114/63 86 12/31/16 12:14 12/31/16 12:14 12/31/16 12:14 12/31/16 12:14 12/31/16 12:14 Vital Signs Reviewed: Yes Appearance: Positive: Well-Appearing, No Pain Distress Skin: Positive: Warm, Skin Color Reflects Adequate Perfusion, Dry, Other - Right foot: there is a 1 cm healing shallow ulceration with minimal erythema and no drainage at the medial aspect adjacent to the MTP Head/Face: Positive: Normal Head/Face Inspection Eyes: Positive: EOMI, YUDITH ENT: Positive: Other - Dry oral mucosa, hard of hearing Neck: Positive: Supple, Nontender Respiratory/Lung Sounds: Positive: Clear to Auscultation, Breath Sounds Present Cardiovascular: Positive: RRR Abdomen Description: Positive: Nontender, Soft Bowel Sounds: Positive: Present Musculoskeletal: Positive: Normal, Strength/ROM Intact Neurological: Positive: Normal, Sensory/Motor Intact, Alert, Oriented to Person Place, Time Psychiatric: Positive: Affect/Mood Appropriate Diagnostics - Vital Signs Vital Signs Temp Pulse Resp BP Pulse Ox 12/31/16 12:14 97.5 F 87 17 114/63 86 - Laboratory Lab Results: Lab Results 12/31/16 12/31/16 12/31/16 Range/Units 13:45 13:45 13:45 WBC 16.0 H (3.5-10.8) 10^3/ul RBC 4.19 (4.0-5.4) 10^6/ul Hgb 12.7 L (14.0-18.0) g/dl Hct 39 L (42-52) % MCV 94 (80-94) fL MCH 30 (27-31) pg MCHC 32 (31-36) g/dl RDW 16 H (10.5-15) % Plt Count 215 (150-450) 10^3/ul MPV 8 (7.4-10.4) um3 Neut % (Auto) 84.0 H (38-83) % Lymph % (Auto) 9.1 L (25-47) % [place] % (Auto) 5.7 (1-9) % Eos % (Auto) 0.8 (0-6) % Baso % (Auto) 0.4 (0-2) % Absolute Neuts (auto) 13.4 H (1.5-7.7) 10^3/ul Absolute Lymphs (auto) 1.5 (1.0-4.8) 10^3/ul Absolute Monos (auto) 0.9 H (0-0.8) 10^3/ul Absolute Eos (auto) 0.1 (0-0.6) 10^3/ul Absolute Basos (auto) 0.1 (0-0.2) 10^3/ul Absolute Nucleated RBC 0.01 10^3/ul Nucleated RBC % 0 INR (Anticoag Therapy) 0.90 (0.89-1.11) APTT 29.1 (26.0-36.3) seconds Sodium (133-145) mmol/L Potassium (3.5-5.0) mmol/L Chloride (101-111) mmol/L Carbon Dioxide (22-32) mmol/L Anion Gap (2-11) mmol/L BUN (6-24) mg/dL Creatinine (0.67-1.17) mg/dL Est GFR ( Amer) (>60) Est GFR (Non-Af Amer) (>60) BUN/Creatinine Ratio (8-20) Glucose (70-100) mg/dL Lactic Acid (0.5-2.0) mmol/L Calcium (8.6-10.3) mg/dL Total Bilirubin (0.2-1.0) mg/dL AST (13-39) U/L ALT (7-52) U/L Alkaline Phosphatase (34-104) U/L Total Creatine Kinase (10-223) U/L CK-MB (CK-2) (0.6-6.3) ng/mL Troponin I (<0.04) ng/mL C-Reactive Protein (< 5.00) mg/L B-Natriuretic Peptide 159 H ( - 100) pg/mL Total Protein (6.4-8.9) g/dL Albumin (3.2-5.2) g/dL Globulin (2-4) g/dL Albumin/Globulin Ratio (1-3) Lipase (11.0-82.0) U/L TSH (0.34-5.60) mcIU/mL Digoxin (0.8-2.0) ng/ml Group A Strep Rapid (Negative) 12/31/16 12/31/16 12/31/16 Range/Units 13:45 13:45 14:50 WBC (3.5-10.8) 10^3/ul RBC (4.0-5.4) 10^6/ul Hgb (14.0-18.0) g/dl Hct (42-52) % MCV (80-94) fL MCH (27-31) pg MCHC (31-36) g/dl RDW (10.5-15) % Plt Count (150-450) 10^3/ul MPV (7.4-10.4) um3 Neut % (Auto) (38-83) % Lymph % (Auto) (25-47) % [place] % (Auto) (1-9) % Eos % (Auto) (0-6) % Baso % (Auto) (0-2) % Absolute Neuts (auto) (1.5-7.7) 10^3/ul Absolute Lymphs (auto) (1.0-4.8) 10^3/ul Absolute Monos (auto) (0-0.8) 10^3/ul Absolute Eos (auto) (0-0.6) 10^3/ul Absolute Basos (auto) (0-0.2) 10^3/ul Absolute Nucleated RBC 10^3/ul Nucleated RBC % INR (Anticoag Therapy) (0.89-1.11) APTT (26.0-36.3) seconds Sodium 138 (133-145) mmol/L Potassium 3.9 (3.5-5.0) mmol/L Chloride 103 (101-111) mmol/L Carbon Dioxide 32 (22-32) mmol/L Anion Gap 3 (2-11) mmol/L BUN 34 H (6-24) mg/dL Creatinine 1.19 H (0.67-1.17) mg/dL Est GFR ( Amer) 74.9 (>60) Est GFR (Non-Af Amer) 58.2 (>60) BUN/Creatinine Ratio 28.6 H (8-20) Glucose 97 (70-100) mg/dL Lactic Acid 1.1 (0.5-2.0) mmol/L Calcium 8.9 (8.6-10.3) mg/dL Total Bilirubin 0.50 (0.2-1.0) mg/dL AST 14 (13-39) U/L ALT 10 (7-52) U/L Alkaline Phosphatase 59 (34-104) U/L Total Creatine Kinase 38 (10-223) U/L CK-MB (CK-2) 4.2 (0.6-6.3) ng/mL Troponin I 0.01 (<0.04) ng/mL C-Reactive Protein 49.87 H (< 5.00) mg/L B-Natriuretic Peptide ( - 100) pg/mL Total Protein 6.7 (6.4-8.9) g/dL Albumin 3.3 (3.2-5.2) g/dL Globulin 3.4 (2-4) g/dL Albumin/Globulin Ratio 1.0 (1-3) Lipase 20 (11.0-82.0) U/L TSH 1.33 (0.34-5.60) mcIU/mL Digoxin 0.2 L (0.8-2.0) ng/ml Group A Strep Rapid Negative (Negative) Result Diagrams: 12/31/16 13:45 12/31/16 13:45 Lab Statement: Any lab studies that have been ordered have been reviewed, and results considered in the medical decision making process. - Radiology CXR Radiology Interpretation Completed By: Radiologist - IMPRESSION: BIBASILAR INFILTRATES IMPROVED FROM THE PRIOR EXAM. - EKG 12:22 Cardiac Rate: NL - at 99 bpm EKG Rhythm: Sinus Rhythm - with supraventricular bigeminy ST Segment: Normal Re-Evaluation - Re-Evaluation First Eval Re-Evaluation Time: 15:07 Comment: Discussed lab and imaging results with patient and family. Discussed admission Course/Dx - Course Course Of Treatment: NO CRITICAL CARE TIME Assessment/Plan: WELL IN ED. DISCUSSED RESULTS WITH PATIENT/FAMILY. ADMIT HOSPITALIST STABLE. - Diagnoses Provider Diagnoses: Pneumonia - Provider Notifications Discussed Care Of Patient With: Dr. Mckoy (hospitalist) at 15:31 - agrees to admit Discharge - Discharge Plan Condition: Stable Disposition: ADMITTED TO [facility] Referrals: Micheal Rutledge MD [Primary Care Provider] - The documentation as recorded by the Kaylan salguero Erika accurately reflects the service I personally performed and the decisions made by me, Wellington Robin MD.
[2016-12-31 17:40] LABS: Urine Bacteria Absent (Absent); Urine Bilirubin Negative (Negative); Urine Glucose 2+(150 mg/dL) (Negative); Urine Nitrite Negative (Negative)
[2016-12-31] MEDS ORDERED: Spiriva Inhaler DEVICE* 1 EACH DEVICE INH ONE (18:00)
[2016-12-31] MEDS ORDERED: Haloperidol INJ IV/IM* 5 MG/ML AMP IV ONE (20:29)
--- NOTE | 2016-12-31 21:34 | HP ---
HISTORY AND PHYSICAL: DATE OF ADMISSION: 12/31/16 PRIMARY CARE PROVIDER: Dr. Rutledge. CHIEF COMPLAINT: Shortness of breath and fever. HISTORY OF PRESENT ILLNESS: Mr. Ruelas is an 86-year-old male who has multiple medical problems including COPD and chronic hypoxic respiratory failure requiring 4 L of O2 continuously, dementia, and depression who presented to the emergency room with complaints of shortness of breath and fever. The patient's noted that last evening the patient had a fever up to 101 and his teeth were chattering. She states that she gave him Tylenol and he seemed somewhat improved. She did note that he awakened from sleep 3 times to get up which is unusual for him. She left to run some errands today and her daughter was with the patient and noted that he was having chills and that he was coughing up some mucus. At one point, blood was noted to be in the mucus. The mucus was sometimes same as usual and sometimes different. The patient did receive the flu shot this year. He was recently treated in November 2016 for a pneumonia. PAST MEDICAL HISTORY: 1. COPD/chronic hypoxic respiratory failure. 2. Dementia. 3. Depression. 4. Pulmonary hypertension. 5. GERD. 6. History of paroxysmal atrial fibrillation. PAST SURGICAL HISTORY: 1. Bilateral cataract extraction. 2. Tonsillectomy. MEDICATIONS: 1. Prednisone 10 mg p.o. daily. 2. Spiriva 1 puff inhale daily. 3. Sertraline 100 mg p.o. daily. 4. Probiotic 1 tab p.o. daily. 5. Omeprazole 20 mg p.o. daily. 6. Wellbutrin XL 150 mg p.o. daily. 7. Bumex 1 mg p.o. daily. 8. Budesonide 0.5 mg inhale twice daily p.r.n. shortness of breath. 9. ProAir RespiClick 1 puff inhale q.6 h. p.r.n. shortness of breath. 10. Albuterol 1 neb inhale q.6 h. p.r.n. shortness of breath. ALLERGIES: No known drug allergies. FAMILY HISTORY: Mom at a very young age. Dad of lung cancer, also at a young age. The patient was essentially taken in by his grandparents. SOCIAL HISTORY: The patient was a former smoker of 1 pack per day. He occasionally will smoke cigarette but not very often. He does not drink alcohol. He worked in construction. He is . He has 4 children. His , Lyly Ruelas, is his healthcare proxy. REVIEW OF SYSTEMS: Essentially unobtainable from the patient but per the patient's , he had fever as above. His appetite has been good. He has not been complaining of any chest pain. He has had cough as noted above. She has not noted him to have increased frequency of urination or complaints of dysuria. She notes that he has been ambulating without difficulty and has had no falls recently. PHYSICAL EXAMINATION GENERAL: The patient is a well-developed elderly male, sitting up in the stretcher in no acute distress. VITAL SIGNS: Blood pressure 126/71, pulse 88, respirations 20, temp 98.9, O2 sat is 98% on 4 L. HEENT: Pupils are equal. They are round. They react to light. Extraocular muscles are intact. Oropharynx is clear. Oral mucosa is dry. There is no submandibular, cervical, or supraclavicular adenopathy. Thyroid is not enlarged. No thyroid nodules are noted. PULMONARY: Lungs are clear, but markedly diminished in all lung diamond. CARDIAC: Normal S1, S2. Regular rate and rhythm. I do not appreciate any murmurs. ABDOMEN: Bowel sounds present. Abdomen is soft, nontender, nondistended. MUSCULOSKELETAL: There is no cyanosis or clubbing of the digits. There is full active range of motion of all 4 extremities. NEUROLOGIC: Cranial nerves II through XII appeared to be grossly intact. Sensation is intact to light touch throughout. Strength is 5/5 and symmetric in both upper and lower extremities bilaterally. PSYCH: The patient is alert. He is confused. SKIN: Warm and dry. There are no rashes. There is a small, approximately 3 mm ulceration to the MTP joint medially. LABORATORY DATA/IMAGING STUDIES: WBC 16.0, hemoglobin 12.7, hematocrit 39, platelets 215. INR 0.9. Sodium 138, potassium 3.9, chloride 103, CO2 32, BUN 34, creatinine 1.19, glucose 97. Lactic acid 1.1. Calcium 8.9, bilirubin 0.5, AST 14, ALT 10, alk phos 59, CPK 38, CK-MB 4.2, troponin is 0.01, CRP 49.87. BNP 159, albumin 3.3, lipase 20, TSH 1.33, digoxin 0.2. Group B Strep negative. Influenza pending. EKG revealed sinus rhythm with frequent PAC's. The chest x-ray reveals bibasilar infiltrates improved from the prior exam. ASSESSMENT AND PLAN: Mr. Ruelas is an 86-year-old male with a history of O2 dependent chronic obstructive pulmonary disease and chronic hypoxic respiratory failure who presents to the emergency room after sustaining fever and teeth chattering chills the night prior to admission as well as chills and cough the day of admission and is being admitted for observation of possible recurrent pneumonia. 1. Possible pneumonia. The patient does continue to have infiltrates on chest x- ray. I would have expected the infiltrates from his prior pneumonia to have resolved on chest x-ray by this time. Perhaps this is new. He will be placed on ceftriaxone and azithromycin. He is not doing much in the way of coughing at this point. He has no wheezing on exam, therefore, I will not bump up his usual prednisone dose. Influenza is pending. I suspect the patient will be able to go home tomorrow. 2. Chronic obstructive pulmonary disease. At this point, there are no signs of exacerbation. He will be maintained on his usual inhaler/nebulizer regimen and prednisone dose. 3. Depression. The patient will be maintained on his usual home medication regimen. 4. Paroxysmal atrial fibrillation. The patient is not on any medications for this. He appears to be in sinus rhythm at this time. 5. DVT prophylaxis. According to the Adult Thrombosis Prophylaxis Risk Factor Assessment Guide, the patient has a total risk factor score of 3 making him high risk. He will be placed on heparin 5000 units subcutaneous q.8 h. 6. Code status is DNR. Again, the patient's is his healthcare proxy. TIME SPENT: Sixty-five minutes was spent admitting this patient. CC: Dr. Rutledge * [id number]/[facility] #: [id number] HUBERT
[2016-12-31] MEDS: Heparin VIAL(*) 5000 UNITS/ML VIAL (FIVE THOUSAND) SUBCUT SCH (21:38)
[2017-01-01 01:37] LABS: Hematocrit 37 % (42-52); Hemoglobin 11.5 g/dl (14.0-18.0); Mean Corpuscular HGB Conc 31 g/dl (31-36); Mean Corpuscular Hemoglobin 29 pg (27-31); Mean Corpuscular Volume 95 fL (80-94); Mean Platelet Volume 8 um3 (7.4-10.4); Red Blood Count 3.91 10^6/ul (4.0-5.4); Red Cell Distribution Width 16 % (10.5-15); White Blood Count 14.7 10^3/ul (3.5-10.8)
[2017-01-01 02:04] LABS: BUN/Creatinine Ratio 30.7 (8-20); Calcium 8.4 mg/dL (8.6-10.3); EGFR African American 90.5 (>60); EGFR Non-African American 70.4 (>60); Potassium 4.3 mmol/L (3.5-5.0)
[2017-01-01] MEDS: Heparin VIAL(*) 5000 UNITS/ML VIAL (FIVE THOUSAND) SUBCUT SCH (07:21)
[2017-01-01 07:59] VITALS: BP 151/82
--- NOTE | 2017-01-01 08:22 | PN ---
Subjective Date of Service: 01/01/17 Interval History: Pt is feeling well. He does not remember he is in the hospital. He denies any pain. He denies SOB. Objective Active Medications: Albuterol (Ventolin 2.5 Mg/3 Ml Neb.Shiela*) 2.5 mg INH Q6H PRN PRN Reason: SHORTNESS OF BREATH Budesonide (Pulmicort Neb*) 0.5 mg INH BID PRN PRN Reason: SHORTNESS OF BREATH Bupropion HCl (Wellbutrin Xl *) 150 mg PO DAILY MARGY PRN Reason: Protocol Heparin Sodium (Porcine) (Heparin Vial(*)) 5,000 units SUBCUT Q8HR [facility] Last Admin: 01/01/17 07:21 Dose: 5,000 units Sodium Chloride (Ns 0.9% 1000 Ml*) 1,000 mls @ 150 mls/hr IV PER RATE [facility] Last Admin: 12/31/16 15:33 Dose: 150 mls/hr Sodium Chloride (Ns 0.9% 1000 Ml*) 1,000 mls @ 100 mls/hr IV PER RATE [facility] Last Admin: 12/31/16 23:44 Dose: 100 mls/hr Ceftriaxone Sodium 1,000 mg/ (Sodium Chloride) 50 mls @ 200 mls/hr IVPB Q24H MARGY Azithromycin 500 mg/ Sodium (Chloride) 250 mls @ 250 mls/hr IVPB Q24H [facility] Omeprazole (Prilosec Cap*) 20 mg PO DAILY [facility] Prednisone (Deltasone Tab*) 10 mg PO DAILY [facility] Sertraline HCl (Zoloft*) 100 mg PO QAM [facility] Tiotropium [place] (Spiriva Cap.Inh*) 1 cap INH DAILY [facility] Vital Signs 12/31/16 12/31/16 12/31/16 16:36 17:00 17:59 Temperature 97.6 F Pulse Rate 109 63 52 Respiratory Rate Blood Pressure 130/79 144/75 117/59 (mmHg) O2 Sat by Pulse 91 86 92 Oximetry 12/31/16 12/31/16 12/31/16 18:06 18:48 21:40 Temperature 97.6 F Pulse Rate 52 Respiratory 16 16 20 Rate Blood Pressure 117/59 (mmHg) O2 Sat by Pulse 92 Oximetry 12/31/16 01/01/17 01/01/17 23:12 03:13 07:14 Temperature 98.0 F 97.2 F Pulse Rate 134 66 42 Respiratory 20 20 16 Rate Blood Pressure 119/60 142/84 (mmHg) O2 Sat by Pulse 95 100 99 Oximetry 01/01/17 07:38 Temperature Pulse Rate 37 Respiratory 14 Rate Blood Pressure 151/82 (mmHg) O2 Sat by Pulse 97 Oximetry Oxygen Devices in Use Now: Nasal Cannula - 4L-97% Appearance: Elderly male sleeping in bed, awakens to voice, NAD Eyes: No Scleral Icterus Ears/Nose/Mouth/Throat: Mucous Membranes Moist Respiratory: Symmetrical Chest Expansion and Respiratory Effort, Clear to Auscultation - with few bibasilar crackles Cardiovascular: NL Sounds; No Murmurs; No JVD, RRR, No Edema Abdominal: NL Sounds; No Tenderness; No Distention Extremities: No Clubbing, Cyanosis Skin: No Rash or Ulcers, No Nodules or Sclerosis, - - + bruising on arms/hands related to pt pulling out IVs last night Neurological: - - alert, not oriented Result Diagrams: 01/01/17 01:23 01/01/17 01:23 Additional Lab and Data: Lab Results 12/31/16 12/31/16 12/31/16 Range/Units 13:45 13:45 13:45 WBC 16.0 H (3.5-10.8) 10^3/ul RBC 4.19 (4.0-5.4) 10^6/ul Hgb 12.7 L (14.0-18.0) g/dl Hct 39 L (42-52) % MCV 94 (80-94) fL MCH 30 (27-31) pg MCHC 32 (31-36) g/dl RDW 16 H (10.5-15) % Plt Count 215 (150-450) 10^3/ul MPV 8 (7.4-10.4) um3 Neut % (Auto) 84.0 H (38-83) % Lymph % (Auto) 9.1 L (25-47) % [place] % (Auto) 5.7 (1-9) % Eos % (Auto) 0.8 (0-6) % Baso % (Auto) 0.4 (0-2) % Absolute Neuts (auto) 13.4 H (1.5-7.7) 10^3/ul Absolute Lymphs (auto) 1.5 (1.0-4.8) 10^3/ul Absolute Monos (auto) 0.9 H (0-0.8) 10^3/ul Absolute Eos (auto) 0.1 (0-0.6) 10^3/ul Absolute Basos (auto) 0.1 (0-0.2) 10^3/ul Absolute Nucleated RBC 0.01 10^3/ul Nucleated RBC % 0 INR (Anticoag Therapy) 0.90 (0.89-1.11) APTT 29.1 (26.0-36.3) seconds Sodium (133-145) mmol/L Potassium (3.5-5.0) mmol/L Chloride (101-111) mmol/L Carbon Dioxide (22-32) mmol/L Anion Gap (2-11) mmol/L BUN (6-24) mg/dL Creatinine (0.67-1.17) mg/dL Est GFR ( Amer) (>60) Est GFR (Non-Af Amer) (>60) BUN/Creatinine Ratio (8-20) Glucose (70-100) mg/dL Lactic Acid (0.5-2.0) mmol/L Calcium (8.6-10.3) mg/dL Total Bilirubin (0.2-1.0) mg/dL AST (13-39) U/L ALT (7-52) U/L Alkaline Phosphatase (34-104) U/L Total Creatine Kinase (10-223) U/L CK-MB (CK-2) (0.6-6.3) ng/mL Troponin I (<0.04) ng/mL C-Reactive Protein (< 5.00) mg/L B-Natriuretic Peptide 159 H ( - 100) pg/mL Total Protein (6.4-8.9) g/dL Albumin (3.2-5.2) g/dL Globulin (2-4) g/dL Albumin/Globulin Ratio (1-3) Lipase (11.0-82.0) U/L TSH (0.34-5.60) mcIU/mL Digoxin (0.8-2.0) ng/ml Group A Strep Rapid (Negative) 12/31/16 12/31/16 12/31/16 Range/Units 13:45 13:45 14:50 WBC (3.5-10.8) 10^3/ul RBC (4.0-5.4) 10^6/ul Hgb (14.0-18.0) g/dl Hct (42-52) % MCV (80-94) fL MCH (27-31) pg MCHC (31-36) g/dl RDW (10.5-15) % Plt Count (150-450) 10^3/ul MPV (7.4-10.4) um3 Neut % (Auto) (38-83) % Lymph % (Auto) (25-47) % [place] % (Auto) (1-9) % Eos % (Auto) (0-6) % Baso % (Auto) (0-2) % Absolute Neuts (auto) (1.5-7.7) 10^3/ul Absolute Lymphs (auto) (1.0-4.8) 10^3/ul Absolute Monos (auto) (0-0.8) 10^3/ul Absolute Eos (auto) (0-0.6) 10^3/ul Absolute Basos (auto) (0-0.2) 10^3/ul Absolute Nucleated RBC 10^3/ul Nucleated RBC % INR (Anticoag Therapy) (0.89-1.11) APTT (26.0-36.3) seconds Sodium 138 (133-145) mmol/L Potassium 3.9 (3.5-5.0) mmol/L Chloride 103 (101-111) mmol/L Carbon Dioxide 32 (22-32) mmol/L Anion Gap 3 (2-11) mmol/L BUN 34 H (6-24) mg/dL Creatinine 1.19 H (0.67-1.17) mg/dL Est GFR ( Amer) 74.9 (>60) Est GFR (Non-Af Amer) 58.2 (>60) BUN/Creatinine Ratio 28.6 H (8-20) Glucose 97 (70-100) mg/dL Lactic Acid 1.1 (0.5-2.0) mmol/L Calcium 8.9 (8.6-10.3) mg/dL Total Bilirubin 0.50 (0.2-1.0) mg/dL AST 14 (13-39) U/L ALT 10 (7-52) U/L Alkaline Phosphatase 59 (34-104) U/L Total Creatine Kinase 38 (10-223) U/L CK-MB (CK-2) 4.2 (0.6-6.3) ng/mL Troponin I 0.01 (<0.04) ng/mL C-Reactive Protein 49.87 H (< 5.00) mg/L B-Natriuretic Peptide ( - 100) pg/mL Total Protein 6.7 (6.4-8.9) g/dL Albumin 3.3 (3.2-5.2) g/dL Globulin 3.4 (2-4) g/dL Albumin/Globulin Ratio 1.0 (1-3) Lipase 20 (11.0-82.0) U/L TSH 1.33 (0.34-5.60) mcIU/mL Digoxin 0.2 L (0.8-2.0) ng/ml Group A Strep Rapid Negative (Negative) Microbiology and Other Data: Microbiology 12/31/16 16:34 Influenza Types A,B Antigen ([facility]) - Final Nasopharyngeal Specimen received for Influenza A/B Molecular testing Assess/Plan/Problems-Billing Mr Ruelas is an 86 yo M who has a h/o COPD and chronic hypoxic respiratory failure requiring 4L of O2 continuously who presents to the ER with c/o fever and cough and was admitted for evaluation and treatment of possible pneumonia. - Patient Problems (1) Pneumonia Current Visit: Yes Status: Acute Onset Date: 11/06/14 Code(s): J18.9 - PNEUMONIA, UNSPECIFIED ORGANISM SNOMED Code(s): 661174934 Comment: The patient is appearing very comfortable from a respiratory standpoint. Will d/c pt home on vantin and azithromycin to complete a full course of therapy. He can be d/magnus home today. (2) COPD (chronic obstructive pulmonary disease) Current Visit: Yes Status: Acute Code(s): J44.9 - CHRONIC OBSTRUCTIVE PULMONARY DISEASE, UNSPECIFIED SNOMED Code(s): 75565280 Comment: No signs of exacerbation. Continue home inhaler regimen. (3) Depression Current Visit: Yes Status: Acute Code(s): F32.9 - MAJOR DEPRESSIVE DISORDER , SINGLE EPISODE, UNSPECIFIED SNOMED Code(s): 72269828 Comment: Continue zoloft and wellbutrin. (4) Dementia Current Visit: Yes Status: Acute Code(s): F03.90 - UNSPECIFIED DEMENTIA WITHOUT BEHAVIORAL DISTURBANCE SNOMED Code(s): 05172397 Comment: At baseline. He was quite agitated overnight. He received haldol. Doing ok this AM. (5) DVT prophylaxis Current Visit: Yes Status: Acute Onset Date: 11/06/14 Code(s): DIH3721 - SNOMED Code(s): 061244264 Comment: SQ heparin (6) DNR (do not resuscitate) Current Visit: Yes Status: Acute
[2017-01-01] MEDS ORDERED: Tiotropium CAP.INH* CAP.INH/18 MCG INH SCH (09:00)
[2017-01-01] MEDS ORDERED: BuPROPion XL* 150 MG TAB.XL PO SCH (09:00)
[2017-01-01] MEDS ORDERED: Omeprazole CAP* 20 MG PO SCH (09:00)
[2017-01-01] MEDS ORDERED: Sertraline* 100 MG TAB PO SCH (09:00)
[2017-01-01] MEDS ORDERED: predniSONE TAB* 10 MG PO SCH (09:00)
[2017-01-01] MEDS ORDERED: cefTRIAXone VIAL(*) 1,000 MG in NS 0.9% 50 ML* 50 ML IVPB SCH (15:30)
[2017-01-01] MEDS ORDERED: Azithromycin IV(*) 500 MG in NS 0.9% 250 ML* 250 ML IVPB SCH (16:00)
--- NOTE | 2017-01-02 01:38 | DS ---
DISCHARGE SUMMARY: DATE OF ADMISSION: 12/31/16 DATE OF DISCHARGE: 01/01/17 PRIMARY CARE PROVIDER: Micheal Rutledge MD PRINCIPAL DIAGNOSIS: Possible pneumonia. SECONDARY DIAGNOSES: 1. Chronic obstructive pulmonary disease and chronic hypoxic respiratory failure. 2. Dementia. 3. Depression. 4. Pulmonary hypertension. 5. Gastroesophageal reflux disease. 6. Paroxysmal atrial fibrillation. DISCHARGE MEDICATIONS: 1. Prednisone 10 mg p.o. daily. 2. Spiriva 1 puff inhaled daily. 3. Sertraline 100 mg p.o. daily. 4. Probiotic 1 tab p.o. daily. 5. Omeprazole 20 mg p.o. daily. 6. Wellbutrin XL 150 mg p.o. daily. 7. Bumex 1 mg p.o. daily. 8. Budesonide 0.5 mg inhaled twice daily p.r.n. shortness of breath. 9. ProAir RespiClick 1 puff inhaled q.6 hours p.r.n. shortness of breath. 10. Albuterol 1 neb inhaled q.6 hours p.r.n. shortness of breath. 11. Vantin 200 mg p.o. q.12 hours x12 doses. 12. Azithromycin 500 mg p.o. daily x4 doses. HOSPITAL COURSE: Mr. Ruelas is an 86-year-old male with a longstanding history of COPD and chronic hypoxic respiratory failure on 4 L oxygen continuously who presents to the emergency room with complaints of fever and cough. The patient' s states that the night prior to admission, he had fever up to 101 as well as shaking chills. He was noted to be very restless. The morning of admission , he again noted to be chilled and had significant cough. Because of this, he was brought to the emergency room for evaluation. The patient was admitted for evaluation of possible pneumonia. The patient was found to have bilateral infiltrates on chest x-ray; however, was still in the process of recovering from pneumonia in end of November. The patient overall, however, looks well. He was brought in under observation status. He was started on ceftriaxone and azithromycin for possible pneumonia. The patient has been afebrile during the course of his hospitalization and had no other signs of ongoing infection. The patient was felt to be stable for discharge home on 01/01/17. He will continue course of Vantin and azithromycin for the possible pneumonia. However, I will not be surprised if this was just a viral illness. The patient will follow up with Dr. Rutledge in the next 4 to 7 days. No changes have been made to his home medication regimen. FOLLOWUP CONCERNS: The patient is being discharged home today, 01/01/17. ACTIVITY LEVEL: As tolerated. DIET: Regular. CONDITION ON DISCHARGE: Stable. TIME SPENT: 25 minutes were spent discharging this patient. CC: Micheal Rutledge MD* [id number]/[facility] #: [id number] MTDAlessandro
== END 2017-01-01 12:50 | disposition home or self-care (01) ==
LOC: ED 12:13 → MED 16:31
PROVIDERS: ADMIT Hospitalist; ATTEND Hospitalist
DX: J44.9 Chronic obstructive pulmonary disease, unspecified (principal); J96.11 Chronic respiratory failure with hypoxia; F03.90 Unspecified dementia, unspecified severity, without behavioral disturbance, psychotic disturbance, mood disturbance, and anxiety; F32.9 Major depressive disorder, single episode, unspecified; I27.2 Other secondary pulmonary hypertension; K21.9 Gastro-esophageal reflux disease without esophagitis; I48.0 Paroxysmal atrial fibrillation; J18.9 Pneumonia, unspecified organism
CPT/HCPCS: 36415; 71010; 80048; 80053; 80162; 81003; 81015; 82550; 82553; 83605; 83690; 83880; 84145; 84443; 84484; 85025; 85027; 85610; 85730; 86140; 87040; 87077; 87086; 87186; 87502; 87651; 93005; 94640; 96374; 96375; 99284; 99406; A9270-GY; G0378; J0456; J0696; J1630; J1644; J7512

== ENCOUNTER 2017-04-01 15:57 | Observation (INO) | payer MEDICARE, BC ==
[2017-04-01] MEDS ORDERED: Albuterol/Ipratropium NEB.SOL* Albuterol 2.5 MG/Ipratropium 0.5 MG 3 ML INH ONE ×2 (16:31→16:56)
[2017-04-01] MEDS ORDERED: Azithromycin IV(*) 500 MG in NS 0.9% 250 ML* 250 ML IVPB ONE (16:37)
[2017-04-01] MEDS ORDERED: methylPREDNISolone 125 MG* 2 ML VIAL IV ONE (16:37)
[2017-04-01] MEDS ORDERED: cefTRIAXone(*) 1 GM in NS 0.9% 50 ML* 50 ML IVPB ONE (16:37)
--- NOTE | 2017-04-01 17:17 | RAD ---
Indication: Shortness of breath. Chronic obstructive pulmonary disease. Cardiovascular disease. Comparison: December 31, 2016 Technique: Upright AP 1650 hours Report: Elevated lung volumes and both diffuse mild prominence of the interstitial markings and patchy rarefaction of the mid to upper lung zone interstitial markings. Similar to the prior exam there is mild consolidation at the bilateral lower lung zones. No focal pulmonary lesion, pleural effusion, or pneumothorax. Negative for cardiomegaly. Normal range central pulmonary vasculature and mediastinal contours. IMPRESSION: Stigmata of advanced chronic obstructive pulmonary disease and emphysema. Chronic bilateral lower lung zone opacities which correlate with advanced interstitial disease with interstitial fibrosis on November 16, [address] without significant interval change. No superimposed acute process evident.
[2017-04-01 18:03] LABS: Hematocrit 44 % (42-52); Hemoglobin 13.9 g/dl (14.0-18.0); Mean Corpuscular HGB Conc 32 g/dl (31-36); Mean Corpuscular Hemoglobin 30 pg (27-31); Mean Corpuscular Volume 94 fL (80-94); Mean Platelet Volume 8 um3 (7.4-10.4); Red Blood Count 4.64 10^6/ul (4.0-5.4); Red Cell Distribution Width 16 % (10.5-15); White Blood Count 23.9 10^3/ul (3.5-10.8)
[2017-04-01 18:05] LABS: Add Diff/Slide Review? Slide Review Added; Comments Flag Yes
[2017-04-01 18:20] LABS: Albumin 3.5 g/dL (3.2-5.2); BUN/Creatinine Ratio 21.2 (8-20); C Reactive Protein 43.5 mg/L (< 5.00); Calcium 9.2 mg/dL (8.6-10.3); EGFR African American 75.6 (>60); EGFR Non-African American 58.8 (>60); Globulin 3.7 g/dL (2-4); Total Bilirubin 0.6 mg/dL (0.2-1.0); Total Protein 7.2 g/dL (6.4-8.9)
[2017-04-01 18:22] LABS: Troponin I 0.01 ng/mL (<0.04)
[2017-04-01] MEDS: NS 0.9% 1000 ML* 1,000 ML IV SCH ×2 (19:15→22:24)
[2017-04-01] MEDS ORDERED: Albuterol HFA INHALER* 8 gm MDI INH PRN (20:36)
[2017-04-01] MEDS ORDERED: Budesonide NEB* 0.5 MG/2 ML NEB.SOLN INH PRN (20:36)
[2017-04-01] MEDS ORDERED: Albuterol 2.5 MG/3 ML NEB.SOL* (0.083%) INH PRN (20:36)
[2017-04-01 20:40] LABS: Urine Bilirubin Negative (Negative); Urine Glucose 1+(50 mg/dL) (Negative); Urine Nitrite Negative (Negative)
[2017-04-01] MEDS ORDERED: Tiotropium CAP.INH* CAP.INH/18 MCG INH SCH (21:00)
[2017-04-01] MEDS ORDERED: Bumetanide TAB* 1 MG PO PRN (21:01)
[2017-04-01] MEDS ORDERED: Acetaminophen TAB* 325 MG PO PRN (21:08)
[2017-04-01] MEDS ORDERED: Ondansetron INJ* 2 MG/ML VIAL IV PRN (21:08)
[2017-04-01] MEDS: Heparin VIAL(*) 5000 UNITS/ML VIAL (FIVE THOUSAND) SUBCUT SCH (22:26)
--- NOTE | 2017-04-01 22:39 | ED ---
Tim Avalos Auryana, scribed for Wellington Robin MD on 04/01/17 at 1645 . Respiratory - HPI Summary HPI Summary: 86 year old male presents with dyspnea starting this morning. Per family patient called them around 5/6 AM with c/o of trouble breathing. Family also reports that he was had increased weakness, fever (101), decreased appetite, productive cough with off-white sputum (normal per family), and bilateral pedal edema. The patient denies any chest pain but family reports that while coughing this morning he was holding his chest. Family did report a few days ago there was blood in the sputum. PMHx is significant for COPD - 4L O2. - History of Current Complaint Chief Complaint: EDShortnessOfBreath Stated Complaint: DIFFICULTY BREATHING/FEVER Time Seen by Provider: 04/01/17 16:30 Hx Obtained From: Patient Onset/Duration: Sudden Onset, Lasting Hours, Still Present Timing: Constant Initial Severity: Moderate Current Severity: Moderate Pain Intensity: 0 Character: Cough (Productive), Dyspnea at Rest Sputum Amount: Small Sputum Color: White - off white Associated Signs and Symptoms: Fever, SOB, Edema - pedal, Dyspnea Related History: Similar Episode/Dx as - dx of COPD - Allergy/Home Medications Allergies/Adverse Reactions: Allergies Allergy/AdvReac Type Severity Reaction Status Date / Time No Known Allergies Allergy Verified 12/31/16 12:16 PMH/Surg Hx/FS Hx/Imm Hx Endocrine/Hematology History: Denies: Hx Diabetes Cardiovascular History: Reports: Hx Hypotension Denies: Hx Congestive Heart Failure, Hx Hypercholesterolemia, Hx Hypertension , Hx Pacemaker/ICD, Other Cardiovascular Problems/Disorders Respiratory History: Reports: Hx Chronic Bronchitis, Hx Chronic Obstructive Pulmonary Disease (COPD), Hx Pneumonia, Other Respiratory Problems/Disorders - HYPOXIA , OCCASIONAL smoker, emphysema GI History: Reports: Hx Gastroesophageal Reflux Disease, Hx Ulcer - HX OF, Other GI Disorders - RECTAL BLEEDING History: Denies: Hx Acute Renal Failure, Hx Dialysis, Hx Renal Disease Musculoskeletal History: Reports: Hx Back Problems - back fracture Denies: Hx Arthritis, Hx Osteoporosis Sensory History: Reports: Hx Cataracts - surgery, Hx Contacts or Glasses - for reading, Hx Hearing Problem Denies: Hx Hearing Aid Opthamlomology History: Reports: Hx Cataracts - surgery, Hx Contacts or Glasses - for reading Neurological History: Reports: Hx Dementia, Other Neuro Impairments/Disorders - DEMENTIA Psychiatric History: Reports: Hx Anxiety, Hx Depression, Other Psychiatric Issues/Disorders - GETS CONFUSED AT NIGHT PER FAMILY ON LAST ADMISSION Denies: Hx Panic Disorder - Surgical History Surgery Procedure, Year, and Place: TONSILLECTOMY CHILD. BILAT CATARACTS [place] Hx Anesthesia Reactions: No - Immunization History Date of Tetanus Vaccine: unk Date of Influenza Vaccine: 2013 Infectious Disease History: No Infectious Disease History: Denies: Traveled Outside the [place] in Last 30 Days - Family History Known Family History: Positive: Respiratory Disease Family History: Father - Lung CA - Social History Alcohol Use: None Hx Substance Use: No Substance Use Type: Reports: None Hx Tobacco Use: Yes Smoking Status (MU): Light Every Day Tobacco Smoker Type: Cigarettes Amount Used/How Often: 10/DAY Length of Time of Smoking/Using Tobacco: 65 YRS Have You Smoked in the Last Year: Yes Review of Systems Positive: Fever, Other - increased weakness Eyes: Negative ENT: Negative Cardiovascular: Negative Negative: Chest Pain Positive: Shortness Of Breath, Cough Positive: Other - decreased appetite Genitourinary: Negative Positive: no symptoms reported Positive: Edema Skin: Negative Neurological: Negative Psychological: Normal All Other Systems Reviewed And Are Negative: Yes Physical Exam - Summary Physical Exam Summary: General: well-appearing, no pain distress Skin: warm, color reflects adequate perfusion, dry Head: normal Eyes: EOMI, YUDITH ENT: normal Neck: supple, nontender Respiratory: breath sounds present, mild respiratory distress. Bilateral wheezing and rhonchi. Decreased air movement in the right lower lung field. Cardiovascular: RRR Abdomen: soft, nontender Bowel: present Musculoskeletal: Bilateral pedal edema but otherwise normal, strength/ROM intact Neurological: normal, sensory/motor intact, A&O x3 Psychological: affect/mood appropriate Triage Information Reviewed: Yes Vital Signs On Initial Exam: Initial Vitals Temp Pulse Resp BP Pulse Ox 100.2 F 75 20 114/53 81 04/01/17 15:59 04/01/17 15:59 04/01/17 15:59 04/01/17 15:59 04/01/17 15:59 Vital Signs Reviewed: Yes Diagnostics - Vital Signs Vital Signs Temp Pulse Resp BP Pulse Ox 04/01/17 16:19 100.2 F 114 25 102/56 95 04/01/17 15:59 100.2 F 75 20 114/53 81 - Laboratory Lab Results: Lab Results 04/01/17 04/01/17 04/01/17 Range/Units 17:55 17:55 17:55 WBC 23.9 H (3.5-10.8) 10^3/ul RBC 4.64 (4.0-5.4) 10^6/ul Hgb 13.9 L (14.0-18.0) g/dl Hct 44 (42-52) % MCV 94 (80-94) fL MCH 30 (27-31) pg MCHC 32 (31-36) g/dl RDW 16 H (10.5-15) % Plt Count 234 (150-450) 10^3/ul MPV 8 (7.4-10.4) um3 Neut % (Auto) 86.4 H (38-83) % Lymph % (Auto) 5.9 L (25-47) % Mchenry % (Auto) 6.8 (1-9) % Eos % (Auto) 0.2 (0-6) % Baso % (Auto) 0.7 (0-2) % Absolute Neuts (auto) 20.6 H (1.5-7.7) 10^3/ul Absolute Lymphs (auto) 1.4 (1.0-4.8) 10^3/ul Absolute Monos (auto) 1.6 H (0-0.8) 10^3/ul Absolute Eos (auto) 0.1 (0-0.6) 10^3/ul Absolute Basos (auto) 0.2 (0-0.2) 10^3/ul Absolute Nucleated RBC 0.01 10^3/ul Nucleated RBC % 0 INR (Anticoag Therapy) 0.84 L (0.89-1.11) APTT 18.1 L (26.0-36.3) seconds Sodium 137 (133-145) mmol/L Potassium 4.0 (3.5-5.0) mmol/L Chloride 100 L (101-111) mmol/L Carbon Dioxide 30 (22-32) mmol/L Anion Gap 7 (2-11) mmol/L BUN 25 H (6-24) mg/dL Creatinine 1.18 H (0.67-1.17) mg/dL Est GFR ( Amer) 75.6 (>60) Est GFR (Non-Af Amer) 58.8 (>60) BUN/Creatinine Ratio 21.2 H (8-20) Glucose 131 H (70-100) mg/dL Lactic Acid (0.5-2.0) mmol/L Calcium 9.2 (8.6-10.3) mg/dL Total Bilirubin 0.60 (0.2-1.0) mg/dL AST 13 (13-39) U/L ALT 14 (7-52) U/L Alkaline Phosphatase 60 (34-104) U/L Total Creatine Kinase 43 (10-223) U/L CK-MB (CK-2) 3.8 (0.6-6.3) ng/mL Troponin I 0.01 (<0.04) ng/mL C-Reactive Protein 43.50 H (< 5.00) mg/L B-Natriuretic Peptide ( - 100) pg/mL Total Protein 7.2 (6.4-8.9) g/dL Albumin 3.5 (3.2-5.2) g/dL Globulin 3.7 (2-4) g/dL Albumin/Globulin Ratio 0.9 L (1-3) Urine Color Urine Appearance Urine pH (5-9) Ur Specific North (1.010-1.030) Urine Protein (Negative) Urine Ketones (Negative) Urine Blood (Negative) Urine Nitrate (Negative) Urine Bilirubin (Negative) Urine Urobilinogen (Negative) Ur Leukocyte Esterase (Negative) Urine Glucose (Negative) 04/01/17 04/01/17 04/01/17 Range/Units 17:55 17:55 20:25 WBC (3.5-10.8) 10^3/ul RBC (4.0-5.4) 10^6/ul Hgb (14.0-18.0) g/dl Hct (42-52) % MCV (80-94) fL MCH (27-31) pg MCHC (31-36) g/dl RDW (10.5-15) % Plt Count (150-450) 10^3/ul MPV (7.4-10.4) um3 Neut % (Auto) (38-83) % Lymph % (Auto) (25-47) % Mchenry % (Auto) (1-9) % Eos % (Auto) (0-6) % Baso % (Auto) (0-2) % Absolute Neuts (auto) (1.5-7.7) 10^3/ul Absolute Lymphs (auto) (1.0-4.8) 10^3/ul Absolute Monos (auto) (0-0.8) 10^3/ul Absolute Eos (auto) (0-0.6) 10^3/ul Absolute Basos (auto) (0-0.2) 10^3/ul Absolute Nucleated RBC 10^3/ul Nucleated RBC % INR (Anticoag Therapy) (0.89-1.11) APTT (26.0-36.3) seconds Sodium (133-145) mmol/L Potassium (3.5-5.0) mmol/L Chloride (101-111) mmol/L Carbon Dioxide (22-32) mmol/L Anion Gap (2-11) mmol/L BUN (6-24) mg/dL Creatinine (0.67-1.17) mg/dL Est GFR ( Amer) (>60) Est GFR (Non-Af Amer) (>60) BUN/Creatinine Ratio (8-20) Glucose (70-100) mg/dL Lactic Acid 1.3 (0.5-2.0) mmol/L Calcium (8.6-10.3) mg/dL Total Bilirubin (0.2-1.0) mg/dL AST (13-39) U/L ALT (7-52) U/L Alkaline Phosphatase (34-104) U/L Total Creatine Kinase (10-223) U/L CK-MB (CK-2) (0.6-6.3) ng/mL Troponin I (<0.04) ng/mL C-Reactive Protein (< 5.00) mg/L B-Natriuretic Peptide 287 H ( - 100) pg/mL Total Protein (6.4-8.9) g/dL Albumin (3.2-5.2) g/dL Globulin (2-4) g/dL Albumin/Globulin Ratio (1-3) Urine Color Yellow Urine Appearance Clear Urine pH 6.0 (5-9) Ur Specific North 1.018 (1.010-1.030) Urine Protein Negative (Negative) Urine Ketones Negative (Negative) Urine Blood Negative (Negative) Urine Nitrate Negative (Negative) Urine Bilirubin Negative (Negative) Urine Urobilinogen Negative (Negative) Ur Leukocyte Esterase Negative (Negative) Urine Glucose 1+(50 mg/dl) H (Negative) Result Diagrams: 04/01/17 17:55 04/01/17 17:55 Lab Statement: Any lab studies that have been ordered have been reviewed, and results considered in the medical decision making process. - Radiology CXR Xray Interpretation: Positive (See Comments) - IMPRESSION: Stigmata of advanced chronic obstructive pulmonary disease and emphysema. Chronic bilateral lower lung zone opacities which correlate with advanced interstitial disease with interstitial fibrosis on November 16, [address] without significant interval change. No superimposed acute process evident. Radiology Interpretation Completed By: Radiologist - EKG 17:25 EKG Interpretation: sinus tachycardia @ 105 bpm with irregular rate. NML ST segment. Re-Evaluation - Re-Evaluation First Eval Re-Evaluation Time: 19:44 - discussed imaging and lab results Disposition - Course Course Of Treatment: NO CRITICAL CARE TIME. ADMIT HOSPITALIST STABLE. - Diagnoses Provider Diagnoses: COPD (chronic obstructive pulmonary disease), Hypoxia, Bronchitis - Physician Notifications Discussed Care Of Patient With: Keshawn Jacobs Time Discussed With Above Provider: 19:45 - agrees to admit Instructed by Provider To: Admit As Inpatient Discharge - Discharge Plan Condition: Stable Disposition: ADMITTED TO [facility] The documentation as recorded by the Tim salguero Auryana accurately reflects the service I personally performed and the decisions made by me, Wellington Robin MD.
[2017-04-02] MEDS ORDERED: Albuterol 2.5 MG/3 ML NEB.SOL* (0.083%) INH PRN (01:14)
[2017-04-02] MEDS: NS 0.9% 1000 ML* 1,000 ML IV SCH ×2 (05:11→11:52)
[2017-04-02] MEDS: Heparin VIAL(*) 5000 UNITS/ML VIAL (FIVE THOUSAND) SUBCUT SCH (05:49)
--- NOTE | 2017-04-02 08:57 | HP ---
CC: Dr. Rutledge * HISTORY AND PHYSICAL: DATE OF ADMISSION: 04/01/17 CHIEF COMPLAINT: Shortness of breath. HISTORY OF PRESENT ILLNESS: The patient is an 86-year-old gentleman with significant dementia who apparently presented to [facility] with the chief complaint of shortness of breath. When I see the patient, he is too confused and does not recall being short of breath at all, and says he feels fine. Per the ER doctor, the family said that about 6 a.m. they received a call saying he was complaining of having difficulty breathing. He is also increasingly weak with a fever of 101 and decreased appetite. He had a cough productive of dark sputum. He also notes increased bilateral lower extremity swelling. The family was not aware of any chest pain. Apparently, a few days ago there was some blood streaks in the sputum. PAST MEDICAL HISTORY: Significant for 1. COPD, on 4 liters of supplemental oxygen as well. 2. Dementia. 3. Depression. 4. Pulmonary hypertension. 5. GERD. 6. Paroxysmal atrial fibrillation. PAST SURGICAL HISTORY: . Cataract extraction bilaterally. 2. Tonsillectomy. CURRENT MEDICATIONS: 1. Bumetanide 1 mg daily. 2. Budesonide 0.5 mg inhaled twice a day as needed. 3. Albuterol one puff every 6 hours as needed. 4. Ventolin via nebulizer q. 6 hours as needed. 5. Omeprazole 20 mg daily. 6. Bupropion 150 mg daily. 7. Spiriva one inhalation at bedtime. 8. Zoloft 100 mg in the morning. 9. Prednisone 10 mg daily. 10. Probiotic one tablet daily. ALLERGIES: He has no known drug allergies. FAMILY HISTORY: Dad of lung cancer at a young age. Mother of unknown cause at a young age. SOCIAL HISTORY: Ex-tobacco; he used to do a pack a day. No alcohol or recreational drug use. , four children. His , Lyly Ruelas, is his healthcare proxy. REVIEW OF SYSTEMS: Unable to obtain from the patient because of the patient's dementia. PHYSICAL EXAMINATION GENERAL: Pleasant gentleman lying in bed, in no acute distress. VITAL SIGNS: Temperature 97.8 degrees, heart rate 68 beats per minute, respiratory rate 20 breaths per minute, pulse oximetry 95% on 4 L, blood pressure 122/64. HEENT: Normocephalic and atraumatic. Pupils are equal, round and reactive to light. Moist mucous membranes. NECK: Supple. No JVD, bruits, palpable thyroid or lymphadenopathy. CHEST: Diminished breath sounds bilaterally. CARDIOVASCULAR: S1, S2 appreciated. ABDOMEN: Positive bowel sounds in all 4 quadrants. Soft, nontender, and nondistended. EXTREMITIES: No cyanosis, clubbing, or edema. +2 pulse bilaterally. NEUROLOGIC: Alert and oriented x2. Moves all extremities. SKIN: No rashes or abnormalities. LABORATORY DATA: White count 23.9, hemoglobin 13.9, hematocrit 44, and platelets 234. Sodium 137, potassium 4, chloride 100, CO2 of 30, BUN 25, creatinine 1.18, glucose 131. CRP 43.5. BNP 287. INR 0.84. Urinalysis shows +1 glucose. Chest x-ray was interpreted by radiology as stigmata of advanced COPD and emphysema, chronic bilateral lung opacities which correlate with advanced interstitial disease with interstitial fibrosis 11/16/15. Chest CT without significant change. No superimposed acute process is evident. EKG shows sinus tachycardia ____ beats per minute, normal axis, no acute ST-T wave changes. ASSESSMENT AND PLAN: 1. Possible pneumonia. Although not evident on chest x-ray, clinically he does appear to have that. I will place him on Rocephin 1 g IV daily, Zithromax 500 mg IV daily. Check sputum for culture and sensitivity, urine for legionella and pneumococcal antigen. We will give him supplemental oxygen, respiratory treatment protocol. I will give him Solu-Medrol as well as he is normally on it. 2. Chronic obstructive pulmonary disease. Again, see above. Continue nebulizers and steroids. 3. Depression. Continue current regimen, appears stable. 4. DVT prophylaxis. Heparin subcu. 5. The patient is supposedly a [id number], but I do not have any documentation of that at this time. We will reassess in a.m. TIME SPENT: Over 75 minutes were spent on this H and P, more than 40 minutes of which were spent in direct [id number] contact with the patient in evaluation, physical exam, counseling, and coordination of care. [id number] #: [id number] MTDD
[2017-04-02] MEDS ORDERED: methylPREDNISolone SOD 40 MG* 1 ML VIAL IV SCH (09:00)
[2017-04-02] MEDS ORDERED: Omeprazole CAP* 20 MG PO SCH (09:00)
[2017-04-02] MEDS ORDERED: Tiotropium CAP.INH* CAP.INH/18 MCG INH SCH (09:00)
[2017-04-02] MEDS ORDERED: Budesonide NEB* 0.5 MG/2 ML NEB.SOLN INH SCH (09:00)
[2017-04-02] MEDS ORDERED: BuPROPion XL* 150 MG TAB.XL PO SCH (09:00)
[2017-04-02] MEDS ORDERED: Sertraline* 100 MG TAB PO SCH (09:00)
[2017-04-02] MEDS ORDERED: Spiriva Inhaler DEVICE* 1 EACH DEVICE INH ONE (09:00)
[2017-04-02 11:53] VITALS: BP 111/64
--- NOTE | 2017-04-02 14:40 | DCNOTE ---
Subjective Date of Service: 04/02/17 Interval History: Patient offers no c/o. Objective Active Medications: Acetaminophen (Tylenol Tab*) 650 mg PO Q4H PRN PRN Reason: FEVER/PAIN Albuterol (Ventolin Hfa Inhaler*) 1 puff INH Q6H PRN PRN Reason: SHORTNESS OF BREATH Albuterol (Ventolin 2.5 Mg/3 Ml Neb.Shiela*) 2.5 mg INH Q4H PRN PRN Reason: SHORTNESS OF BREATH Budesonide (Pulmicort Neb*) 0.5 mg INH BID [facility] Last Admin: 04/02/17 08:10 Dose: 0.5 mg Bumetanide (Bumex Tab*) 1 mg PO DAILY PRN PRN Reason: Swelling feet Bupropion HCl (Wellbutrin Xl *) 150 mg PO DAILY MARGY PRN Reason: Protocol Last Admin: 04/02/17 09:55 Dose: 150 mg Heparin Sodium (Porcine) (Heparin Vial(*)) 5,000 units SUBCUT Q8HR [facility] Last Admin: 04/02/17 05:49 Dose: 5,000 units Sodium Chloride (Ns 0.9% 1000 Ml*) 1,000 mls @ 150 mls/hr IV PER RATE [facility] Last Admin: 04/02/17 11:52 Dose: 150 mls/hr Ceftriaxone Sodium 1,000 mg/ (Sodium Chloride) 50 mls @ 200 mls/hr IVPB Q24H MARGY Azithromycin 500 mg/ Sodium (Chloride) 250 mls @ 250 mls/hr IVPB Q24H [facility] Methylprednisolone Sodium Succinate (Solu-Medrol 40 Mg) 20 mg IV DAILY [facility] Last Admin: 04/02/17 09:55 Dose: 20 mg Omeprazole (Prilosec Cap*) 20 mg PO DAILY [facility] Last Admin: 04/02/17 09:55 Dose: 20 mg Ondansetron HCl (Zofran Inj*) 4 mg IV Q4H PRN PRN Reason: NAUSEA Sertraline HCl (Zoloft*) 100 mg PO QAM [facility] Last Admin: 04/02/17 09:55 Dose: 100 mg Tiotropium Pinon (Spiriva Cap.Inh*) 1 cap INH DAILY [facility] Last Admin: 04/02/17 08:11 Dose: 1 cap Vital Signs 04/01/17 04/01/17 04/01/17 21:30 21:44 21:49 Temperature 98.3 F Pulse Rate 106 105 Respiratory 20 20 Rate Blood Pressure 124/64 117/64 (mmHg) O2 Sat by Pulse 99 96 Oximetry 04/01/17 04/02/17 04/02/17 22:10 03:38 03:46 Temperature 97.8 F 98.1 F Pulse Rate 68 93 Respiratory 20 20 Rate Blood Pressure 122/64 108/49 (mmHg) O2 Sat by Pulse 95 85 96 Oximetry 04/02/17 04/02/17 04/02/17 07:38 08:00 11:44 Temperature 98.2 F 97.5 F Pulse Rate 91 49 Respiratory 16 18 14 Rate Blood Pressure 113/73 111/64 (mmHg) O2 Sat by Pulse 100 99 Oximetry 04/02/17 11:54 Temperature Pulse Rate 82 Respiratory Rate Blood Pressure (mmHg) O2 Sat by Pulse Oximetry Oxygen Devices in Use Now: Nasal Cannula Appearance: Alert, partly up in bed. In good spirits. Looks comfortable. Occ mild cough during my visit. Eyes: No Scleral Icterus Ears/Nose/Mouth/Throat: Clear Oropharnyx, Mucous Membranes Moist Neck: NL Appearance and Movements; NL JVP, No Thyroid Enlargement, Masses Respiratory: Symmetrical Chest Expansion and Respiratory Effort, Clear to Auscultation, Clear to Percussion Cardiovascular: NL Sounds; No Murmurs; No JVD, RRR, No Edema, - Extremities: No Edema, No Clubbing, Cyanosis, - Skin: No Rash or Ulcers, No Nodules or Sclerosis, - Neurological: NL Sensation - Cooperative. Poor verbal skills. No tremor. Disoriented to place and time. Result Diagrams: 04/01/17 17:55 04/01/17 17:55 Additional Lab and Data: Lab Results 04/01/17 04/01/17 04/01/17 Range/Units 17:55 17:55 17:55 WBC 23.9 H (3.5-10.8) 10^3/ul RBC 4.64 (4.0-5.4) 10^6/ul Hgb 13.9 L (14.0-18.0) g/dl Hct 44 (42-52) % MCV 94 (80-94) fL MCH 30 (27-31) pg MCHC 32 (31-36) g/dl RDW 16 H (10.5-15) % Plt Count 234 (150-450) 10^3/ul MPV 8 (7.4-10.4) um3 Neut % (Auto) 86.4 H (38-83) % Lymph % (Auto) 5.9 L (25-47) % [place] % (Auto) 6.8 (1-9) % Eos % (Auto) 0.2 (0-6) % Baso % (Auto) 0.7 (0-2) % Absolute Neuts (auto) 20.6 H (1.5-7.7) 10^3/ul Absolute Lymphs (auto) 1.4 (1.0-4.8) 10^3/ul Absolute Monos (auto) 1.6 H (0-0.8) 10^3/ul Absolute Eos (auto) 0.1 (0-0.6) 10^3/ul Absolute Basos (auto) 0.2 (0-0.2) 10^3/ul Absolute Nucleated RBC 0.01 10^3/ul Nucleated RBC % 0 INR (Anticoag Therapy) 0.84 L (0.89-1.11) APTT 18.1 L (26.0-36.3) seconds Sodium 137 (133-145) mmol/L Potassium 4.0 (3.5-5.0) mmol/L Chloride 100 L (101-111) mmol/L Carbon Dioxide 30 (22-32) mmol/L Anion Gap 7 (2-11) mmol/L BUN 25 H (6-24) mg/dL Creatinine 1.18 H (0.67-1.17) mg/dL Est GFR ( Amer) 75.6 (>60) Est GFR (Non-Af Amer) 58.8 (>60) BUN/Creatinine Ratio 21.2 H (8-20) Glucose 131 H (70-100) mg/dL Lactic Acid (0.5-2.0) mmol/L Calcium 9.2 (8.6-10.3) mg/dL Total Bilirubin 0.60 (0.2-1.0) mg/dL AST 13 (13-39) U/L ALT 14 (7-52) U/L Alkaline Phosphatase 60 (34-104) U/L Total Creatine Kinase 43 (10-223) U/L CK-MB (CK-2) 3.8 (0.6-6.3) ng/mL Troponin I 0.01 (<0.04) ng/mL C-Reactive Protein 43.50 H (< 5.00) mg/L B-Natriuretic Peptide ( - 100) pg/mL Total Protein 7.2 (6.4-8.9) g/dL Albumin 3.5 (3.2-5.2) g/dL Globulin 3.7 (2-4) g/dL Albumin/Globulin Ratio 0.9 L (1-3) Urine Color Urine Appearance Urine pH (5-9) Ur Specific [place] (1.010-1.030) Urine Protein (Negative) Urine Ketones (Negative) Urine Blood (Negative) Urine Nitrate (Negative) Urine Bilirubin (Negative) Urine Urobilinogen (Negative) Ur Leukocyte Esterase (Negative) Urine Glucose (Negative) 04/01/17 04/01/17 04/01/17 Range/Units 17:55 17:55 20:25 WBC (3.5-10.8) 10^3/ul RBC (4.0-5.4) 10^6/ul Hgb (14.0-18.0) g/dl Hct (42-52) % MCV (80-94) fL MCH (27-31) pg MCHC (31-36) g/dl RDW (10.5-15) % Plt Count (150-450) 10^3/ul MPV (7.4-10.4) um3 Neut % (Auto) (38-83) % Lymph % (Auto) (25-47) % [place] % (Auto) (1-9) % Eos % (Auto) (0-6) % Baso % (Auto) (0-2) % Absolute Neuts (auto) (1.5-7.7) 10^3/ul Absolute Lymphs (auto) (1.0-4.8) 10^3/ul Absolute Monos (auto) (0-0.8) 10^3/ul Absolute Eos (auto) (0-0.6) 10^3/ul Absolute Basos (auto) (0-0.2) 10^3/ul Absolute Nucleated RBC 10^3/ul Nucleated RBC % INR (Anticoag Therapy) (0.89-1.11) APTT (26.0-36.3) seconds Sodium (133-145) mmol/L Potassium (3.5-5.0) mmol/L Chloride (101-111) mmol/L Carbon Dioxide (22-32) mmol/L Anion Gap (2-11) mmol/L BUN (6-24) mg/dL Creatinine (0.67-1.17) mg/dL Est GFR ( Amer) (>60) Est GFR (Non-Af Amer) (>60) BUN/Creatinine Ratio (8-20) Glucose (70-100) mg/dL Lactic Acid 1.3 (0.5-2.0) mmol/L Calcium (8.6-10.3) mg/dL Total Bilirubin (0.2-1.0) mg/dL AST (13-39) U/L ALT (7-52) U/L Alkaline Phosphatase (34-104) U/L Total Creatine Kinase (10-223) U/L CK-MB (CK-2) (0.6-6.3) ng/mL Troponin I (<0.04) ng/mL C-Reactive Protein (< 5.00) mg/L B-Natriuretic Peptide 287 H ( - 100) pg/mL Total Protein (6.4-8.9) g/dL Albumin (3.2-5.2) g/dL Globulin (2-4) g/dL Albumin/Globulin Ratio (1-3) Urine Color Yellow Urine Appearance Clear Urine pH 6.0 (5-9) Ur Specific [place] 1.018 (1.010-1.030) Urine Protein Negative (Negative) Urine Ketones Negative (Negative) Urine Blood Negative (Negative) Urine Nitrate Negative (Negative) Urine Bilirubin Negative (Negative) Urine Urobilinogen Negative (Negative) Ur Leukocyte Esterase Negative (Negative) Urine Glucose 1+(50 mg/dl) H (Negative) Assess/Plan/Problems-Billing Assessment: - Patient Problems (1) COPD exacerbation Current Visit: No Status: Acute Code(s): J44.1 - CHRONIC OBSTRUCTIVE PULMONARY DISEASE W (ACUTE) EXACERBATION SNOMED Code(s): 903643938 Comment: Cefuroxime 500 mg bid x 6 d and azithromycin 250 mg daily x 6 d as outpt. (2) Tobacco abuse Current Visit: No Status: Chronic Code(s): Z72.0 - TOBACCO USE SNOMED Code (s): 031508135 Comment: His bought him 2 packs of cigarettes recently. I advised her to help him quit and also to avoid second hand smoke. (3) Chronic use of steroids Current Visit: Yes Status: Acute Code(s): MNY5294 - SNOMED Code(s): 485513402 Comment: advised to discuss lowering the dose of prednisone with Dr. Robison. (4) Dementia Current Visit: No Status: Acute Code(s): F03.90 - UNSPECIFIED DEMENTIA WITHOUT BEHAVIORAL DISTURBANCE SNOMED Code(s): 75717079 Comment: aware of dx. Status and Disposition: Discharge now, fup Dr. Robison.
[2017-04-02] MEDS ORDERED: Azithromycin IV(*) 500 MG in NS 0.9% 250 ML* 250 ML IVPB SCH (17:00)
[2017-04-02] MEDS ORDERED: cefTRIAXone VIAL(*) 1,000 MG in NS 0.9% 50 ML* 50 ML IVPB SCH (18:00)
--- NOTE | 2017-04-03 08:08 | DS ---
CC: Dr. Robison * DISCHARGE SUMMARY: DATE OF ADMISSION: 04/01/17 DATE OF DISCHARGE: 04/02/17. HISTORY OF PRESENT ILLNESS: This 86-year-old man presented with shortness of breath and cough. The patient has dementia and could not give much of a history. He told the admitting provider that he felt fine. I think he had a temperature of 101 at home. The rest of the history is detailed in the dictated admission note. I note the patient continues to smoke with an occasional cigarette provided by his , probably on a daily basis. Chest x-ray did not show any acute infiltrate. His temperature here was 100.2 on arrival, and was under 99 after 9 p.m. on the first hospital day. The was present when I visited him on the day of discharge, and noted that the patient was much better today. The patient had an occasional really mild cough , but seemed quite comfortable. On examination, his lungs are clear. He was breathing easily. The patient will finish a five-day course of azithromycin and a seven-day course of cephalosporin at home. I advised the to discuss possibly lowering the dose of his maintenance prednisone with Dr. Robison. FINAL DIAGNOSES: 1. COPD exacerbation. 2. Tobacco use disorder. 3. Chronic use of steroids. 4. Dementia. DISCHARGE MEDICATIONS: 1. Azithromycin 250 mg daily for 4 days. 2. Cefuroxime 500 mg b.i.d. for 6 days. 3. Sertraline 100 mg daily. 4. Tiotropium one capsule h.s. 5. Budesonide by nebulizer 0.5 mg b.i.d. p.r.n. 6. Albuterol 2.5 mg via inhalation every 6 hours p.r.n. 7. Bumetanide 1 mg as prescribed. 8. Bupropion 150 mg daily. 9. Omeprazole 20 mg daily. 10. Probiotic one tablet daily. 11. Prednisone 10 mg daily. 12. Albuterol sulfate one puff every 6 hours p.r.n. 13. Potassium chloride 10 mEq daily. [id number]/[facility] #: [id number] MTDD
== END 2017-04-02 15:35 | disposition home or self-care (01) ==
LOC: ED 15:57 → MED 21:09 → INTOOBSV 21:09
PROVIDERS: ADMIT Internal Medicine; ATTEND Internal Medicine
DX: J44.1 Chronic obstructive pulmonary disease with (acute) exacerbation (principal); F17.210 Nicotine dependence, cigarettes, uncomplicated; Z79.51 Long term (current) use of inhaled steroids; F03.90 Unspecified dementia, unspecified severity, without behavioral disturbance, psychotic disturbance, mood disturbance, and anxiety; I27.2 Other secondary pulmonary hypertension; R09.02 Hypoxemia
CPT/HCPCS: 36415; 71010; 80053; 81003; 82550; 82553; 83605; 83880; 84484; 85025; 85610; 85730; 86140; 87040; 87899; 93005; 94640; 94760; 96365; 96367; 96372; 96375; 96376; 99285; A9270-GY; G0378; J0456; J0696; J1644; J2920; J2930

== ENCOUNTER 2017-07-22 14:21 | Emergency (ER) | payer MEDICARE, BC ==
[2017-07-22 15:24] LABS: Hematocrit 41 % (42-52); Hemoglobin 13.1 g/dl (14.0-18.0); Mean Corpuscular HGB Conc 32 g/dl (31-36); Mean Corpuscular Hemoglobin 31 pg (27-31); Mean Corpuscular Volume 95 fL (80-94); Mean Platelet Volume 8 um3 (7.4-10.4); Red Blood Count 4.29 10^6/ul (4.0-5.4); Red Cell Distribution Width 15 % (10.5-15); White Blood Count 12.5 10^3/ul (3.5-10.8)
[2017-07-22 15:40] LABS: Albumin 3.3 g/dL (3.2-5.2); BUN/Creatinine Ratio 24.4 (8-20); Calcium 9.1 mg/dL (8.6-10.3); EGFR African American 74.9 (>60); EGFR Non-African American 58.2 (>60); Globulin 3.4 g/dL (2-4); Potassium 4.3 mmol/L (3.5-5.0); Total Bilirubin 0.5 mg/dL (0.2-1.0); Total Protein 6.7 g/dL (6.4-8.9)
[2017-07-22 15:41] LABS: Troponin I 0.01 ng/mL (<0.04)
--- NOTE | 2017-07-22 16:19 | RAD ---
Indication: Sudden onset chest pain, shortness of breath, increased weakness. COPD. Tobacco use. Comparison: April 01, 2017 Technique: Upright AP 1534 hours Report: Elevated lung volumes and both diffuse mild prominence of the interstitial markings and patchy rarefaction of the mid to upper lung zone interstitial markings. Linear subsegmental atelectasis at the LEFT lower lung zone. Additional less specific mild alveolar and interstitial consolidation at the lung bases similar to the prior exam. Negative for pleural effusion or pneumothorax. The heart, pulmonary vasculature, and mediastinal contours are unremarkable. IMPRESSION: Stigmata of obstructive lung disease. Bibasilar pulmonary infiltrates. While similar in appearance to the April 01, 2017 exam which suggests chronicity recurrent inflammatory infiltrates are not excluded. Negative for pneumothorax.
[2017-07-22 18:44] VITALS: BP 111/71
--- NOTE | 2017-07-22 18:46 | ED ---
Sha Avalos Gabriel, scribed for Nolan Schwarz MD on 07/22/17 at 1448 . HPI Chest Pain - HPI Summary HPI Summary: This patient is a 86 year old M presenting to [facility] accompanied by family with a chief complaint of chest pain since TRAUMA NURSE. The patient rates the pain 8/10 in severity. Pain radiates into neck, shoulders and upper chest. Symptoms alleviated by spontaneous resolution. Patient reports coughing Patient denies diaphoresis. Patient's family also states he fell the other night and the left side of his face and left shoulder. 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 Hx From Patient Unobtainable Due To: Dementia Onset/Duration: Resolved Timing: Intermittent Initial Severity: Severe Current Severity: None Pain Intensity: 8 Pain Scale Used: 0-10 Numeric Chest Pain Location: Diffuse Chest Pain Radiates: Yes Chest Pain Radiates To:: Shoulder, Jaw, Neck Alleviating Factor(s): Spontaneous Resolution Associated Signs and Symptoms: Positive: Negative - diaphoresis, Palpitations - Additional Pertinent History Primary Care Physician: YAMILETH - Allergy/Home Medications Allergies/Adverse Reactions: Allergies Allergy/AdvReac Type Severity Reaction Status Date / Time No Known Allergies Allergy Verified 12/31/16 12:16 Home Medications: Home Medications clonazePAM TAB(*) [KlonoPIN TAB(*)] 0.5 mg PO TID PRN 07/22/17 [History Confirmed 07/22/17] PMH/Surg Hx/FS Hx/Imm Hx Previously Healthy: No Endocrine/Hematology History: Denies: Hx Diabetes Cardiovascular History: Reports: Hx Hypotension Denies: Hx Congestive Heart Failure, Hx Deep Vein Thrombosis, Hx Embolism, Hx Hypercholesterolemia, Hx Hypertension, Hx Pacemaker/ICD, Other Cardiovascular Problems/Disorders Respiratory History: Reports: Hx Chronic Bronchitis, Hx Chronic Obstructive Pulmonary Disease (COPD), Hx Pneumonia, Other Respiratory Problems/Disorders - HYPOXIA , OCCASIONAL smoker, emphysema Denies: Hx Asthma GI History: Reports: Hx Gastroesophageal Reflux Disease, Hx Ulcer - HX OF, Other GI Disorders - RECTAL BLEEDING History: Denies: Hx Acute Renal Failure, Hx Dialysis, Hx Renal Disease Musculoskeletal History: Reports: Hx Back Problems - back fracture Denies: Hx Arthritis, Hx Osteoporosis Sensory History: Reports: Hx Cataracts - surgery, Hx Contacts or Glasses - for reading, Hx Hearing Problem Denies: Hx Hearing Aid Opthamlomology History: Reports: Hx Cataracts - surgery, Hx Contacts or Glasses - for reading Neurological History: Reports: Hx Dementia, Other Neuro Impairments/Disorders - DEMENTIA Psychiatric History: Reports: Hx Anxiety, Hx Depression, Other Psychiatric Issues/Disorders - GETS CONFUSED AT NIGHT PER FAMILY ON LAST ADMISSION Denies: Hx Panic Disorder - Surgical History Surgery Procedure, Year, and Place: TONSILLECTOMY CHILD. BILAT CATARACTS [place] Hx Anesthesia Reactions: No - Immunization History Date of Tetanus Vaccine: unk Date of Influenza Vaccine: 2013 Infectious Disease History: No Infectious Disease History: Reports: Hx Shingles Denies: Traveled Outside the [place] in Last 30 Days - Family History Known Family History: Positive: Respiratory Disease Family History: Father - Lung CA - Social History Alcohol Use: None Hx Substance Use: No Substance Use Type: Reports: None Hx Tobacco Use: Yes Smoking Status (MU): Light Every Day Tobacco Smoker Type: Cigarettes Amount Used/How Often: 10/DAY Length of Time of Smoking/Using Tobacco: 65 YRS Have You Smoked in the Last Year: Yes Review of Systems Negative: Skin Diaphoresis Positive: Chest Pain Positive: Cough All Other Systems Reviewed And Are Negative: Yes Physical Exam - Summary Physical Exam Summary: The patient is slightly cachectic, in no obvious distress and in no acute pain. The skin is warm and dry and skin color reflects adequate perfusion. HEENT: ~The head is normocephalic and atraumatic. The pupils are equal and reactive. The conjunctivae are clear and without drainage. ~Nares are patent and without drainage. ~Mouth reveals moist mucous membranes and the throat is without erythema and exudate. ~The external ears are intact. The ear canals are patent and without drainage. The tympanic membranes are intact. Neck is supple with full range of motion and non-tender. There are no carotid bruits. ~There is no neck vein distension. Respiratory: Chest is non-tender. ~Lungs are clear to auscultation and breath sounds decreased. Cardiovascular: Heart is irregularly irregular. ~There is no murmur or rub auscultated. ~~There is no peripheral edema and pulses are symmetrical and equal. Abdomen: The abdomen is soft and non-tender. ~There are normal bowel sounds heard in all four quadrants and there is no organomegaly palpated. Musculoskeletal: There is no back pain noted. ~Extremities are non-tender with full range of motion. ~There is good capillary refill. ~There is no peripheral edema or calf tenderness elicited. Neurological: Patient is alert and oriented to person, place and time. ~The patient has symmetrical motor strength in all four extremities. ~Cranial nerves are grossly intact. Deep tendon reflexes are symmetrical and equal in all four extremities. Psychiatric: The patient has an appropriate affect and does not exhibit any anxiety or depression. Triage Information Reviewed: Yes Vital Signs On Initial Exam: Initial Vitals Temp Pulse Resp BP Pulse Ox 98.0 F 89 20 155/77 91 07/22/17 14:28 07/22/17 14:28 07/22/17 14:28 07/22/17 14:28 07/22/17 14:28 Vital Signs Reviewed: Yes Diagnostics - Vital Signs Vital Signs Temp Pulse Resp BP Pulse Ox 07/22/17 14:28 98.0 F 89 20 155/77 91 - Laboratory Lab Results: Lab Results 07/22/17 07/22/17 07/22/17 Range/Units 15:15 15:15 15:15 WBC 12.5 H (3.5-10.8) 10^3/ul RBC 4.29 (4.0-5.4) 10^6/ul Hgb 13.1 L (14.0-18.0) g/dl Hct 41 L (42-52) % MCV 95 H (80-94) fL MCH 31 (27-31) pg MCHC 32 (31-36) g/dl RDW 15 (10.5-15) % Plt Count 239 (150-450) 10^3/ul MPV 8 (7.4-10.4) um3 Neut % (Auto) 78.1 (38-83) % Lymph % (Auto) 11.9 L (25-47) % [place] % (Auto) 5.6 (1-9) % Eos % (Auto) 3.6 (0-6) % Baso % (Auto) 0.8 (0-2) % Absolute Neuts (auto) 9.8 H (1.5-7.7) 10^3/ul Absolute Lymphs (auto) 1.5 (1.0-4.8) 10^3/ul Absolute Monos (auto) 0.7 (0-0.8) 10^3/ul Absolute Eos (auto) 0.4 (0-0.6) 10^3/ul Absolute Basos (auto) 0.1 (0-0.2) 10^3/ul Absolute Nucleated RBC 0.02 10^3/ul Nucleated RBC % 0.1 INR (Anticoag Therapy) 0.95 (0.89-1.11) Sodium 137 (133-145) mmol/L Potassium 4.3 (3.5-5.0) mmol/L Chloride 103 (101-111) mmol/L Carbon Dioxide 30 (22-32) mmol/L Anion Gap 4 (2-11) mmol/L BUN 29 H (6-24) mg/dL Creatinine 1.19 H (0.67-1.17) mg/dL Est GFR ( Amer) 74.9 (>60) Est GFR (Non-Af Amer) 58.2 (>60) BUN/Creatinine Ratio 24.4 H (8-20) Glucose 99 (70-100) mg/dL Lactic Acid (0.5-2.0) mmol/L Calcium 9.1 (8.6-10.3) mg/dL Total Bilirubin 0.50 (0.2-1.0) mg/dL AST 12 L (13-39) U/L ALT 7 (7-52) U/L Alkaline Phosphatase 54 (34-104) U/L Troponin I 0.01 (<0.04) ng/mL Total Protein 6.7 (6.4-8.9) g/dL Albumin 3.3 (3.2-5.2) g/dL Globulin 3.4 (2-4) g/dL Albumin/Globulin Ratio 1.0 (1-3) 07/22/17 07/22/17 Range/Units 15:15 17:54 WBC (3.5-10.8) 10^3/ul RBC (4.0-5.4) 10^6/ul Hgb (14.0-18.0) g/dl Hct (42-52) % MCV (80-94) fL MCH (27-31) pg MCHC (31-36) g/dl RDW (10.5-15) % Plt Count (150-450) 10^3/ul MPV (7.4-10.4) um3 Neut % (Auto) (38-83) % Lymph % (Auto) (25-47) % [place] % (Auto) (1-9) % Eos % (Auto) (0-6) % Baso % (Auto) (0-2) % Absolute Neuts (auto) (1.5-7.7) 10^3/ul Absolute Lymphs (auto) (1.0-4.8) 10^3/ul Absolute Monos (auto) (0-0.8) 10^3/ul Absolute Eos (auto) (0-0.6) 10^3/ul Absolute Basos (auto) (0-0.2) 10^3/ul Absolute Nucleated RBC 10^3/ul Nucleated RBC % INR (Anticoag Therapy) (0.89-1.11) Sodium (133-145) mmol/L Potassium (3.5-5.0) mmol/L Chloride (101-111) mmol/L Carbon Dioxide (22-32) mmol/L Anion Gap (2-11) mmol/L BUN (6-24) mg/dL Creatinine (0.67-1.17) mg/dL Est GFR ( Amer) (>60) Est GFR (Non-Af Amer) (>60) BUN/Creatinine Ratio (8-20) Glucose (70-100) mg/dL Lactic Acid 0.8 (0.5-2.0) mmol/L Calcium (8.6-10.3) mg/dL Total Bilirubin (0.2-1.0) mg/dL AST (13-39) U/L ALT (7-52) U/L Alkaline Phosphatase (34-104) U/L Troponin I 0.01 (<0.04) ng/mL Total Protein (6.4-8.9) g/dL Albumin (3.2-5.2) g/dL Globulin (2-4) g/dL Albumin/Globulin Ratio (1-3) Result Diagrams: 07/22/17 15:15 07/22/17 15:15 Lab Statement: Any lab studies that have been ordered have been reviewed, and results considered in the medical decision making process. - Radiology CXR Radiology Interpretation Completed By: Radiologist - Stigmata of obstructive lung disease. Bibasilar pulmonary infiltrates. While similar in appearance to the April 01, 2017 exam which suggests chronicity recurrent inflammatory infiltrates are not excluded. Negative for pneumothorax. ED physician has reviewed this radiology report and agrees. - EKG 15:48 Cardiac Rate: NL EKG Rhythm: Sinus Rhythm - 99 BPM EKG Interpretation: atrial bigeminy Chest Pain Course/Dx - Course Course Of Treatment: Mr. Ruelas was C/O CP at home. HE denies it now and it appears that sometime en route here it resolved. He was observed here on the monitor while labs were obtained including a delayed trop. He remained stable and symptom free. - Diagnoses Provider Diagnoses: Chest pain Discharge - Discharge Plan Condition: Stable Disposition: HOME Patient Education Materials: Chest Pain (ED) Referrals: Micheal Rutledge MD [Medical Doctor] - Additional Instructions: Follow up with your primary care provider in 3-4 days. RETURN TO THE EMERGENCY DEPARTMENT FOR CHANGING OR WORSENING SYMPTOMS The documentation as recorded by the Sha salguero Gabriel accurately reflects the service I personally performed and the decisions made by me, Nolan Shcwarz MD.
== END 2017-07-22 19:05 | disposition home or self-care (01) ==
LOC: ED 14:21
DX: R07.9 Chest pain, unspecified (principal); R05 Cough; F17.210 Nicotine dependence, cigarettes, uncomplicated
CPT/HCPCS: 36415; 71010; 80053; 83605; 84484; 85025; 85610; 93005; 99283